=== PATIENT | female | born 1970 | race Caucasian/White ===

== ENCOUNTER 2016-10-11 00:13 | Inpatient (IN) | payer BC ==
[2016-10-11] VITALS (16 sets, daily range): BP systolic 100–155; BP diastolic 49–86; PULSE 82–118; RESP 12–22; TEMP 97.8–98.6; O2SAT 94–100
[~2016-10-11] VITALS: Ht 180.3 cm; Wt 112.3 kg
[~2016-10-11 00:13] MED LIST: CARA1SUS3 PO; COZA50TA PO; GABA300C5 PO; GABA600T PO; LANTUS2P SQ; METF1000 PO; PROT40TA PO
[2016-10-11] MEDS ORDERED: GLUC2.5T2 PO (00:40)
[2016-10-11] MEDS ORDERED: ESCI5TAB PO (00:40)
[2016-10-11] MEDS ORDERED: ONDANSETRON HCL 4 MG/2 ML VIAL IV ONE (00:45)
[2016-10-11] MEDS ORDERED: SODIUM CHLOR 0.9% 1000 ML INJ 1,000 ML IV ONE ×2 (00:45→02:15)
[2016-10-11 01:23] LABS: BLOOD, URINE NEG (NEG); COMMENT (UR) CULT NOT INDICATED; CULTURE IF INDICATED CULT NOT INDICATED; GLUCOSE,URINE 1000 mg/dL (NEG); KETONE, URINE 10 mg/dL (NEG); MUCUS URINE FEW /lpf (OCC); NITRITE,URINE NEG (NEG); PH, URINE 5.5 (5.0-8.5); SQUAMOUS EPITHELIAL CELL URINE 2 /hpf (0-5); URINE COLOR YELLOW (YELLW/STRAW)
[2016-10-11 01:29] LABS: AUTOMATED NEUTROPHIL # 9.7 TH/MM3 (1.8-7.7); BASOPHIL # 0.1 TH/MM3 (0-0.2); BASOPHIL % 0.7 % (0.0-2.0); EOSINOPHIL # 0.5 TH/MM3 (0-0.4); EOSINOPHIL % 4.1 % (0.0-4.0); LYMPHOCYTE # 2.4 TH/MM3 (1.0-4.8); MEAN CELL VOLUME 72.8 FL (80.0-100.0); MEAN CORPUSCULAR HEMOGLOBIN 22.7 PG (27.0-34.0); MEAN CORPUSCULAR HGB CONC 31.1 % (32.0-36.0); MONO % 5.2 % (0.0-8.0); PLATELET COUNT 272 TH/MM3 (150-450); RED BLOOD COUNT 2.24 MIL/MM3 (4.00-5.30); RED CELL DISTRIBUTION WIDTH 18.4 % (11.6-17.2); WHITE BLOOD COUNT 13.5 TH/MM3 (4.0-11.0)
[2016-10-11 01:32] LABS: HEMO FLAGS AUTO DIFF
[2016-10-11 01:33] LABS: HEMATOCRIT 16.3 % (35.0-46.0)
[2016-10-11 01:41] LABS: APTT (PATIENT) 25.4 SEC (24.3-30.1); INTERNATIONAL NORMALIZED RATIO 0.9 RATIO; PROTHROMBIN TIME - PATIENT 10.4 SEC (9.8-11.6)
[2016-10-11 02:08] LABS: ALT (GPT) 20 U/L (10-53); ANION GAP 10 MEQ/L (5-15); AST (GOT) 15 U/L (15-37); BICARBONATE 22.8 MEQ/L (21.0-32.0); BLOOD UREA NITROGEN 16 MG/DL (7-18); CHLORIDE 103 MEQ/L (98-107); GLOMERULAR FILTRATION RATE 70 ML/MIN (>89); MAGNESIUM 1.9 MG/DL (1.5-2.5); POTASSIUM 4.1 MEQ/L (3.5-5.1); SODIUM (NA) 136 MEQ/L (136-145)
[2016-10-11] MEDS ORDERED: MORPHINE SULFATE 4 MG/ML INJ IV PUSH ONE ×2 (02:15→03:15)
[2016-10-11] MEDS ORDERED: PANTOPRAZOLE INJ 80 MG in SODIUM CHLORIDE 0.9% INJ 35 ML IV ONE (02:15)
[2016-10-11] MEDS ORDERED: SODIUM CHLOR 0.9% 250 ML INJ 250 ML IV ONE ×2 (02:15)
[2016-10-11 02:18] LABS: ALKALINE PHOSPHATASE 80 U/L (45-117); TOTAL BILIRUBIN ADULT 0.2 MG/DL (0.2-1.0)
[2016-10-11 02:19] LABS: CREATINE KINASE 46 U/L (26-192)
[2016-10-11 02:23] LABS: STOMATOCYTES 1+ (NORMAL)
[2016-10-11 02:24] LABS: SCAN/DIFF AUTO DIFF CONFIRMED
[2016-10-11] MEDS: PANTOPRAZOLE INJ 80 MG in SODIUM CHLORIDE 0.9% INJ 100 ML IV SCH (02:41)
[2016-10-11] MEDS ORDERED: IOHEXOL 350 MG/ML 10 ML VIAL (for RAD DIAG) IV ONE (02:50)
--- NOTE | 2016-10-11 03:01 | PD ---
HPI Chief Complaint: Abdominal Pain Time Seen by Provider: 00:36 Travel History International Travel<30 days: No Contact w/Intl Traveler<30days: No Traveled to known affect area: No History of Present Illness HPI The patient is a 46 year old female who presents to the [facility] emergency department with a history of midepigastric abdominal pain that recurred 2 weeks ago after eating meat loaf. The patient reports that the pain waxes and wanes in severity. She reports it is worse with eating. She reports that it lasts for approximately 4 to 5 hours after eating and then she throws up undigested food. She reports that she has not been eating well because of it and has lost weight. She is unsure exactly how much. She reports that she' s also been getting pale, dizzy, and lightheaded with palpitations. She reports that with any exertion she feels her heart racing. The patient reports that she's been to her primary care physician, Dr. Morales on multiple occasions over the last 2 weeks. She reports that she was given a prescription for nausea medication today. She reports that she has not been able to fill the prescription today. She reports that he ordered blood work and a 24-hour Holter monitor, however she couldn't wait that she felt like she was benign. She reports that the pain she was experiencing is similar to what she had in May when she was started on Protonix. She reports that the Protonix had been continued since then and had been helping up until 2 weeks ago. The patient reports that she has been referred to a medicare sales executive for October 17. She denies ever undergoing endoscopy or colonoscopy. The patient reports that over the last week she's had frequent small tools that are black and tarry. The patient reports that when she started to have palpitations she felt that this could be cardiac in nature and for 2 days she took a baby aspirin daily. She reports that otherwise she has not taking any anti-inflammatory pain medications. The patient denies any recent fevers, cough, congestion, neck pain , urinary symptoms, or neurologic symptoms. LMP: 3-4 days ago her menstrual cycle completed. She reports that it was light. PFSH Past Medical History Narrative Medical The patient's past medical history is significant for diabetes mellitus and was diagnosed approximately 16 years ago, history of a hiatal hernia, history of hypertension. Cancer: No Cardiovascular Problems: No Diabetes: Yes Patient Takes Glucophage: Yes Diminished Hearing: No Endocrine: Yes Gastrointestinal Disorders: No Genitourinary: No Hepatitis: No Hiatal Hernia: Yes Hypertension: Yes Immune Disorder: No Musculoskeletal: No Neurologic: No Psychiatric: No Reproductive: No Respiratory: No Thyroid Disease: No ?: Not LMP: 10/09/16 Past Surgical History Narrative Surgical The patient's past surgical history is significant for liver biopsy, appendectomy, 2 abdominal hernia repairs. Abdominal Surgery: Yes (LIVER BIOPSY) Appendectomy: Yes Pacemaker: No Other Surgery: Yes (2 ABD hernia surgeries) Social History Alcohol Use: No Tobacco Use: Yes (5 CIGS PER DAY PER PT) Substance Use: No Allergies-Medications (Allergen,Severity, Reaction): Coded Allergies: No Known Allergies (Verified , 10/11/16) Reported Meds & Prescriptions Reported Meds & Active Scripts Active Protonix (Pantoprazole Sodium) 40 Mg Tab 40 Mg PO DAILY Reported Escitalopram (Escitalopram Oxalate) 5 Mg Tab 10 Mg PO DAILY Glucovance (Glyburide-Metformin) 2.5-500 Mg Tab 2 Tab PO BID Cozaar (Losartan Potassium) 50 Mg Tab 50 Mg PO DAILY Gabapentin 600 Mg Tab 900 Mg PO HS Lantus Inj (Insulin Glargine) 1,000 Unit/10 Ml Vial 58 Units SQ BID Review of Systems Except as stated in HPI: all other systems reviewed are Neg General / Constitutional: No: Fever Eyes: No: Visual changes HENT: No: Headaches Cardiovascular: Positive: Chest Pain or Discomfort, Palpitations, Tachycardia, Dyspnea on exertion Respiratory: No: Cough, Shortness of Breath Gastrointestinal: Positive: Nausea, Vomiting, Diarrhea, Abdominal Pain, Changes in Bowel Habits, Indigestion, Loss of Appetite, No: Hematemesis, Hematochezia Genitourinary: No: Dysuria Musculoskeletal: No: Pain Skin: No Rash Neurologic: No: Weakness Psychiatric: No: Depression Endocrine: No: Polydipsia Hematologic/Lymphatic: No: Easy Bruising Physical Exam Narrative General: The patient is a well-developed well-nourished female, extremely pale appearing on arrival, otherwise in no acute distress. Head and Neck exam: Head is normocephalic atraumatic. Eyes: EOMI, pupils are equal round and reactive to light. Nose: Midline septum with pink mucous membranes Mouth: Dentition unremarkable. Moist mucus membranes. Posterior oropharynx is not erythematous. No tonsillar hypertrophy. Uvula midline. Airway patent. Neck: No palpable lymphadenopathy. No nuchal rigidity. No thyromegaly. Cardiovascular: Sinus tachycardia in the low 100s without murmurs, gallops, or rubs. No pulse deficit to the extremities and simultaneous auscultation and palpation of her radial artery. Lungs: Clear to auscultation bilaterally. No wheezes, rhonchi, or rales. Abdomen: Soft, with midepigastric abdominal discomfort on palpation, no other tenderness on palpation of the other 4 quadrants of the abdomen No guarding, rebound, or rigidity. Normal bowel sounds are audible. The patient has a negative Landaverde' s sign. No tenderness on palpation of McBurney's point. Extremities: No clubbing, cyanosis, or edema. 2+ pulses in all 4 extremities. No calf tenderness on palpation. Back: No costovertebral angle tenderness to palpation. Neurologic Exam: Grossly nonfocal Skin Exam: No rash noted. Intact skin that is warm and dry. RECTAL EXAM: No masses or tenderness, stool is dark brown in color. Hemoprompt is Hemoccult positive. Data Data Last Documented VS Vital Signs Date Time Temp Pulse Resp B/P Pulse Ox O2 Delivery O2 Flow Rate FiO2 10/11/16 02:59 103 19 123/58 98 Room Air 10/11/16 00:15 98.0 Orders Electrocardiogram (10/11/16 00:36) Complete Blood Count With Diff (10/11/16 00:36) Comprehensive Metabolic Panel (10/11/16 00:36) Creatine Kinase (Cpk) (10/11/16 00:36) Ckmb (Isoenzyme) Profile (10/11/16 00:36) Troponin I (10/11/16 00:36) B-Type Natriuretic Peptide (10/11/16 00:36) Prothrombin Time / Inr (Pt) (10/11/16 00:36) Act Partial Throm Time (Ptt) (10/11/16 00:36) Lipase (10/11/16 00:36) Urinalysis - C+S If Indicated (10/11/16 00:36) Magnesium (Mg) (10/11/16 00:36) Thyroid Stimulating Hormone (10/11/16 00:36) Ct Abd/Pel W Iv Contrast(Rout) (10/11/16 00:36) Iv Access Insert/Monitor (10/11/16 00:36) Ecg Monitoring (10/11/16 00:36) Oximetry (10/11/16 00:36) Lactic Acid (10/11/16 00:36) Ct Pulmonary Angiogram (10/11/16 00:36) Sodium Chlor 0.9% 1000 Ml Inj (Ns 1000 M (10/11/16 00:45) Ondansetron Inj (Zofran Inj) (10/11/16 00:45) Type And Screen (10/11/16 02:05) Red Blood Cells (Rbc) (10/11/16 02:05) Sodium Chlor 0.9% 250 Ml Inj (Ns 250 Ml (10/11/16 02:15) Blood Product Administration .UPON TRANSFUSION (10/11/16 02:05) Sodium Chlor 0.9% 250 Ml Inj (Ns 250 Ml (10/11/16 02:15) Pantoprazole Inj (Protonix Inj) (10/11/16 02:15) Pantoprazole Inj (Protonix Inj) (10/11/16 02:15) Sodium Chlor 0.9% 1000 Ml Inj (Ns 1000 M (10/11/16 02:15) Morphine Inj (Morphine Inj) (10/11/16 02:15) Iohexol 350 Inj (Omnipaque 350 Inj) (10/11/16 02:50) Morphine Inj (Morphine Inj) (10/11/16 03:15) Admit Order (Ed Use Only) (10/11/16 03:16) Consult Gastroenterology (10/11/16 ) Labs Laboratory Tests Test 10/11/16 10/11/16 10/11/16 01:09 01:18 02:37 Urine Color YELLOW Urine Turbidity CLEAR Urine pH 5.5 Urine Specific [place] 1.030 Urine Protein TRACE mg/dL Urine Glucose (UA) 1000 mg/dL Urine Ketones 10 mg/dL Urine Occult Blood NEG Urine Nitrite NEG Urine Bilirubin NEG Urine Urobilinogen LESS THAN 2.0 MG/DL Urine Leukocyte Esterase NEG Urine RBC LESS THAN 1 /hpf Urine WBC 1 /hpf Urine Squamous Epithelial 2 /hpf Cells Urine Mucus FEW /lpf Microscopic Urinalysis Comment CULT NOT INDICATED White Blood Count 13.5 TH/MM3 Red Blood Count 2.24 MIL/MM3 Hemoglobin 5.1 GM/DL Hematocrit 16.3 % Mean Corpuscular Volume 72.8 FL Mean Corpuscular Hemoglobin 22.7 PG Mean Corpuscular Hemoglobin 31.1 % Concent Red Cell Distribution Width 18.4 % Platelet Count 272 TH/MM3 Mean Platelet Volume 8.6 FL Neutrophils (%) (Auto) 72.0 % Lymphocytes (%) (Auto) 18.0 % Monocytes (%) (Auto) 5.2 % Eosinophils (%) (Auto) 4.1 % Basophils (%) (Auto) 0.7 % Neutrophils # (Auto) 9.7 TH/MM3 Lymphocytes # (Auto) 2.4 TH/MM3 Monocytes # (Auto) 0.7 TH/MM3 Eosinophils # (Auto) 0.5 TH/MM3 Basophils # (Auto) 0.1 TH/MM3 CBC Comment AUTO DIFF Differential Comment AUTO DIFF CONFIRMED Polychromasia 3.0 % Stomatocytes 1+ Prothrombin Time 10.4 SEC Prothromb Time International 0.9 RATIO Ratio Activated Partial 25.4 SEC Thromboplast Time Sodium Level 136 MEQ/L Potassium Level 4.1 MEQ/L Chloride Level 103 MEQ/L Carbon Dioxide Level 22.8 MEQ/L Anion Gap 10 MEQ/L Blood Urea Nitrogen 16 MG/DL Creatinine 0.87 MG/DL Estimat Glomerular Filtration 70 ML/MIN Rate Random Glucose 326 MG/DL Lactic Acid Level 4.2 mmol/L Calcium Level 8.1 MG/DL Magnesium Level 1.9 MG/DL Total Bilirubin 0.2 MG/DL Aspartate Amino Transf 15 U/L (AST/SGOT) Alanine Aminotransferase 20 U/L (ALT/SGPT) Alkaline Phosphatase 80 U/L Total Creatine Kinase 46 U/L Troponin I LESS THAN 0.02 NG/ML B-Type Natriuretic Peptide 18 PG/ML Total Protein 6.3 GM/DL Albumin 2.7 GM/DL Lipase 185 U/L Thyroid Stimulating Hormone 1.690 uIU/ML 3rd Gen Blood Type A NEGATIVE Antibody Screen NEGATIVE Crossmatch Leukocyte-Reduced Red Blood Cells Blood Bank Comment MDM Medical Decision Making Medical Screen Exam Complete: Yes Emergency Medical Condition: Yes Medical Record Reviewed: Yes Interpretation(s) Last Impressions CT Angiography 10/11/16 0036 Signed Impressions: Service Date/Time: Tuesday, October 11, 2016 02:39 - CONCLUSION: 1. No evidence of pulmonary embolism. 2. There is a 5 mm and 6 mm pulmonary nodule the right upper lung. This finding is nonspecific. Recommend followup noncontrast CT thorax in 6 months to check stability. 3. No acute intrathoracic disease. Yadiel Hill MD Abdomen/Pelvis CT 10/11/16 0036 Signed Impressions: Service Date/Time: Tuesday, October 11, 2016 02:39 - CONCLUSION: 1. 3 cm bilateral ovarian cysts. 2. Otherwise, unremarkable exam for patient's age. Yadiel Hill MD Differential Diagnosis Peptic ulcer disease, versus hemorrhagic esophagitis, versus diverticulosis, versus AVM malformation, versus gastric tumor, versus pulmonary embolism, versus symptomatic anemia Narrative Course During the course of the patients emergency department visit, the patients history, examination, and differential diagnosis were reviewed with the patient. The patient had IV access obtained and blood work sent for analysis. The patient was placed on a kitchen help handyman with oximetry and blood pressure monitoring. An EKG was done on arrival. The patient's EKG shows a sinus tachycardia rate of 104, no acute ST segment elevation or depression. The patient was initially provided normal saline 1 L IV fluid bolus, Zofran 4 mg IV. The patient was started on Protonix 80 mg IV followed by Protonix drip. The patient was given morphine for pain. The patients laboratory studies were reviewed and remarkable for a white count of 13.5, hemoglobin 5.1, platelets 272, neutrophils 72.0. The patient was typed and crossmatched for 4 units of blood. The patient will be given 2 units packed red blood cells immediately. CMP is remarkable for a glucose of 326, calcium 8.1, lactic acid 4.2. A second liter of normal saline IV fluids were started, CPK 46, troponin I less than 0.02, BNP 18, TSH 1.69, lipase 185. PT PTT within normal limits. Urinalysis shows 1000 glucose, 10 ketones, otherwise unremarkable. Radiology studies were reviewed and remarkable for A CT scan of the abdomen and pelvis that shows 3 cm bilateral ovarian cysts, otherwise unremarkable. CTA to rule out pulmonary embolism shows no evidence of pulmonary embolism. There is a 5 mm and 6 mm pulmonary nodule in the right lung finding is nonspecific recommend follow-up noncontrast CT in 6 months to check stability, no other acute abnormality. The patients results were discussed with the patient, including the plan of care. I explained that further testing and/ or monitoring is indicated based on the patients history, examination, and/ or laboratory findings. Therefore, I recommended admission for additional evaluation. The patient expressed understanding and was agreeable with this plan. The patient was admitted to the hospital in guarded condition and sent to a bed under the care of the [facility]. Physician Communication Physician Communication The patient's case was discussed with Aman Metcalf who did agree to admit the patient for further evaluation and treatment at this time. Diagnosis Primary Impression: Abdominal pain Qualified Code: R10.13 - Epigastric pain Additional Impression: GI bleed Qualified Code: K92.2 - Gastrointestinal hemorrhage, unspecified gastrointestinal hemorrhage type Admitting Information Admitting Physician Requests: it Allyson Robertson MD Oct 11, 2016 03:01
--- NOTE | 2016-10-11 03:04 | RADRPT ---
EXAM DATE/TIME: 10/11/2016 02:39 [facility] COMPARISON: No previous studies available for comparison. INDICATIONS : Short of breath. IV CONTRAST: 100 cc Omnipaque 350 (iohexol) IV ; Cumulative dose for multiple exams. RADIATION DOSE: 12.55 CTDIvol (mGy) MEDICAL HISTORY : Hypertension. Hernia, hiatal. Diabetes mellitus type 2. SURGICAL HISTORY : Appendectomy. Hernia repair. ENCOUNTER: Initial ACUITY: 2 weeks PAIN SCALE: 0/10 LOCATION: chest TECHNIQUE: Volumetric scanning of the chest was performed using a pulmonary embolism protocol MIP images were re constructed. Using automated exposure control and adjustment of the mA and/or kV according to patien t size, radiation dose was kept as low as reasonably achievable to obtain optimal diagnostic quality images. FINDINGS: PULMONARY ARTERIES: No filling defects are seen in the pulmonary arteries through the segmental level. LUNGS: There is no consolidation or pneumothorax . No focal or acute pulmonary infiltrates. There is a 5 mm pulmonary nodule in the 6 mm pulmonary nodule in the right upper lung. PLEURAE: There is no pleural thickening or pleural effusion. MEDIASTINUM: There is good visualization of the great vessels of the middle mediastinum. No evidence of mediastin al or hilar adenopathy/mass. MUSCULOSKELETAL: Within normal limits for patient age. Mild degenerative changes. MISCELLANEOUS: The visualized upper abdominal organs demonstrate no acute abnormality. CONCLUSION: 1. No evidence of pulmonary embolism. 2. There is a 5 mm and 6 mm pulmonary nodule the right upper lung. This finding is nonspecific. Recom mend followup noncontrast CT thorax in 6 months to check stability. 3. No acute intrathoracic disease. Yadiel Hill MD on October 11, 2016 at 2:58 Board Certified Radiologist. This report was verified electronically.
--- NOTE | 2016-10-11 03:08 | RADRPT ---
EXAM DATE/TIME: 10/11/2016 02:39 [facility] COMPARISON: No previous studies available for comparison. INDICATIONS : Diffuse abdominal pain with nausea, vomiting and diarrhea. IV CONTRAST: 100 cc Omnipaque 350 (iohexol) IV ; Cumulative dose for multiple exams. ORAL CONTRAST: No oral contrast ingested. RADIATION DOSE: 16.86 CTDIvol (mGy) MEDICAL HISTORY : Hernia, hiatal. Hypertension. Diabetes mellitus type 2. SURGICAL HISTORY : Appendectomy. Hernia repair. ENCOUNTER: Initial ACUITY: 2 weeks PAIN SCALE: 6/10 LOCATION: Bilateral abdomen TECHNIQUE: Volumetric scanning of the abdomen and pelvis was performed. Using automated exposure control and ad justment of the mA and/or kV according to patient size, radiation dose was kept as low as reasonably achievable to obtain optimal diagnostic quality images. FINDINGS: LOWER LUNGS: The visualized lower lungs are clear. LIVER: Homogeneous density without lesion. There is no dilation of the biliary tree. No calcified gallston es. SPLEEN: Normal size without lesion. PANCREAS: Within normal limits. KIDNEYS: Normal in size and shape. There is no mass, stone or hydronephrosis. ADRENAL GLANDS: Within normal limits. VASCULAR: There is no aortic aneurysm. BOWEL/MESENTERY: The stomach, small bowel, and colon demonstrate no acute abnormality. There is no free intraperitone al air or fluid. No inflammatory changes. ABDOMINAL WALL: Within normal limits. RETROPERITONEUM: There is no lymphadenopathy. BLADDER: No wall thickening or mass. REPRODUCTIVE: The uterus is within normal limits for size. There are bilateral ovarian cysts measuring approximatel y 3 cm in diameter. No free fluid in the cul-de-sac. INGUINAL: There is no hernia. A few nonspecific lymph nodes are seen in both inguinal areas. MUSCULOSKELETAL: Within normal limits for patient age. Primary bony degenerative changes. CONCLUSION: 1. 3 cm bilateral ovarian cysts. 2. Otherwise, unremarkable exam for patient's age. Yadiel Hill MD on October 11, 2016 at 3:03 Board Certified Radiologist. This report was verified electronically.
[2016-10-11] MEDS: SODIUM CHLOR 0.9% 1000 ML INJ 1,000 ML IV SCH ×3 (03:25→23:16)
[2016-10-11] MEDS ORDERED: ONDANSETRON HCL 4 MG/2 ML VIAL IVP PRN (03:30)
[2016-10-11] MEDS ORDERED: NALOXONE HCL 0.4 MG/ML AMP IV PRN (03:30)
[2016-10-11] MEDS ORDERED: ACETAMINOPHEN 325 MG TAB PO PRN (03:30)
[2016-10-11] MEDS ORDERED: SODIUM CHLORIDE 0.9% FLUSH 10 ML FLUSH IV FLUSH PRN (03:30)
--- NOTE | 2016-10-11 07:20 | PD.CONS ---
HPI History of Present Illness This is a 46 year old female who presented to the ER for evaluation of abdominal pain with associated black and tarry stools x 2 weeks. She reports that she has been having post prandial epigastric pain, described as an intermittent burning, dull aching at time, pain with no radiation. This is aggravated by any po intake. She has associated nausea, vomiting, consisting of undigested food or bilious material. She also has associated bloating. She was seen in the ER several weeks ago and told that she may have an ulcer and was started on Pantoprazole 40mg po daily. She has continued to have pain and also reports that she started having black tarry stools about 2 weeks ago. She reports that she has had severe weakness, dizziness, lightheadedness, and a "racing heart" for 2 weeks. This seems to be aggravated by activity. In the ER , she was found to have severe anemia with an HH 5.1/16.3. She denies any hx of PUD. She has never had an EGD/Colonoscopy. She does not take NSAIDs. She does not drink ETOH. (Rebecca Rutherford) PFSH Past Medical History Hypertension Hyperlipidemia DM Allergic rhinitis DDD cervical spine Hx Bursitis right shoulder Hiatal hernia Past Surgical History Appendectomy Liver biopsy Abdominal hernia repairs x 2 (Rebecca Rutherford) Coded Allergies: No Known Allergies (Verified , 10/11/16) Medications Allergies Coded Allergies Type Severity Reaction Last Updated Verified No Known Allergies 10/11/16 Yes Active Scripts Medications Dose Route/Sig Days Date Category Escitalopram (Escitalopram Oxalate) 5 Mg Tab 10 Mg PO DAILY 10/11/16 Reported Glucovance (Glyburide-Metformin) 2.5-500 Mg Tab 2 Tab PO BID 10/11/16 Reported Protonix (Pantoprazole Sodium) 40 Mg Tab 40 Mg PO DAILY 06/08/16 Rx Cozaar (Losartan Potassium) 50 Mg Tab 50 Mg PO DAILY 06/08/16 Reported Gabapentin 600 Mg Tab 900 Mg PO HS 06/08/16 Reported Lantus Inj (Insulin Glargine) 1,000 Unit/10 Ml Vial 58 Units SQ BID 06/08/16 Reported Family History Father with hx of CVA Mother with hx of uterine cancer Social History Tobacco- 5 cigarettes per day. (Rebecca Rutherford) Review of Systems Constitutional: COMPLAINS OF: Fatigue, Dizziness, DENIES: Fever, Weight loss, Chills, Change in appetite Respiratory: COMPLAINS OF: Shortness of breath, DENIES: Cough Cardiovascular: COMPLAINS OF: Palpitations (racing heart) Gastrointestinal: COMPLAINS OF: Abdominal pain, Black stools, Nausea, Vomiting , Swelling of Abdomen, Heartburn, DENIES: Bloody stools, Constipation, Diarrhea , Hematemesis Musculoskeletal: DENIES: Back pain Integumentary: DENIES: Rash Hematologic/lymphatic: DENIES: Bruising Neurologic: DENIES: Headache Psychiatric: DENIES: Confusion (RutherfordRebecca) GI Exam Vitals I&O Vital Signs Date Time Temp Pulse Resp B/P Pulse Ox O2 Delivery O2 Flow Rate FiO2 10/11/16 06:50 98.4 88 12 115/86 100 10/11/16 06:00 98.4 89 12 114/59 100 10/11/16 05:06 98.3 90 18 106/49 96 Room Air 10/11/16 04:45 98.2 90 16 100/50 97 Room Air 10/11/16 04:31 92 17 119/56 96 Room Air 10/11/16 04:21 98.3 94 18 124/58 98 Room Air 10/11/16 04:10 98.3 95 14 116/59 97 Room Air 10/11/16 02:59 103 19 123/58 98 Room Air 10/11/16 01:36 106 22 135/68 100 Room Air 10/11/16 00:50 104 20 139/63 98 Room Air 10/11/16 00:15 98.0 118 16 133/62 100 Room Air I/O 10/10/16 10/10/16 10/10/16 10/11/16 10/11/16 10/11/16 07:00 15:00 23:00 07:00 15:00 23:00 Intake Total 589 ml Balance 589 ml Intake IV Total 339 ml Packed Cells 250 ml # Voids [address] Angiography 10/11/16 0036 Signed Impressions: Service Date/Time: Tuesday, October 11, 2016 02:39 - CONCLUSION: 1. No evidence of pulmonary embolism. 2. There is a 5 mm and 6 mm pulmonary nodule the right upper lung. This finding is nonspecific. Recommend followup noncontrast CT thorax in 6 months to check stability. 3. No acute intrathoracic disease. Yadiel Hill MD Abdomen/Pelvis CT 10/11/16 0036 Signed Impressions: Service Date/Time: Tuesday, October 11, 2016 02:39 - CONCLUSION: 1. 3 cm bilateral ovarian cysts. 2. Otherwise, unremarkable exam for patient's age. Yadiel Hill MD Laboratory Test 10/11/16 10/11/16 10/11/16 10/11/16 01:09 01:18 02:37 05:36 Urine Color YELLOW Urine Turbidity CLEAR Urine pH 5.5 Urine Specific [place] 1.030 Urine Protein TRACE mg/dL Urine Glucose (UA) 1000 mg/dL Urine Ketones 10 mg/dL Urine Occult Blood NEG Urine Nitrite NEG Urine Bilirubin NEG Urine Urobilinogen LESS THAN 2.0 MG/DL Urine Leukocyte Esterase NEG Urine RBC LESS THAN 1 /hpf Urine WBC 1 /hpf Urine Squamous Epithelial 2 /hpf Cells Urine Mucus FEW /lpf Microscopic Urinalysis Comment CULT NOT INDICATED White Blood Count 13.5 TH/MM3 Red Blood Count 2.24 MIL/MM3 Hemoglobin 5.1 GM/DL Hematocrit 16.3 % Mean Corpuscular Volume 72.8 FL Mean Corpuscular Hemoglobin 22.7 PG Mean Corpuscular Hemoglobin 31.1 % Concent Red Cell Distribution Width 18.4 % Platelet Count 272 TH/MM3 Mean Platelet Volume 8.6 FL Neutrophils (%) (Auto) 72.0 % Lymphocytes (%) (Auto) 18.0 % Monocytes (%) (Auto) 5.2 % Eosinophils (%) (Auto) 4.1 % Basophils (%) (Auto) 0.7 % Neutrophils # (Auto) 9.7 TH/MM3 Lymphocytes # (Auto) 2.4 TH/MM3 Monocytes # (Auto) 0.7 TH/MM3 Eosinophils # (Auto) 0.5 TH/MM3 Basophils # (Auto) 0.1 TH/MM3 CBC Comment AUTO DIFF Differential Comment AUTO DIFF CONFIRMED Polychromasia 3.0 % Stomatocytes 1+ Prothrombin Time 10.4 SEC Prothromb Time International 0.9 RATIO Ratio Activated Partial 25.4 SEC Thromboplast Time Sodium Level 136 MEQ/L Potassium Level 4.1 MEQ/L Chloride Level 103 MEQ/L Carbon Dioxide Level 22.8 MEQ/L Anion Gap 10 MEQ/L Blood Urea Nitrogen 16 MG/DL Creatinine 0.87 MG/DL Estimat Glomerular Filtration 70 ML/MIN Rate Random Glucose 326 MG/DL Lactic Acid Level 4.2 mmol/L 1.4 mmol/L Calcium Level 8.1 MG/DL Magnesium Level 1.9 MG/DL Total Bilirubin 0.2 MG/DL Aspartate Amino Transf 15 U/L (AST/SGOT) Alanine Aminotransferase 20 U/L (ALT/SGPT) Alkaline Phosphatase 80 U/L Total Creatine Kinase 46 U/L Troponin I LESS THAN 0.02 NG/ML B-Type Natriuretic Peptide 18 PG/ML Total Protein 6.3 GM/DL Albumin 2.7 GM/DL Lipase 185 U/L Thyroid Stimulating Hormone 1.690 uIU/ML 3rd Gen Blood Type A NEGATIVE Antibody Screen NEGATIVE Crossmatch Leukocyte-Reduced Red Blood Cells Blood Bank Comment Physical Examination HEENT: Normocephalic; atraumatic; no jaundice CHEST: CTA CARDIAC: RRR ABDOMEN: Soft, nondistended, very mild epigastric tenderness; no hepatosplenomegaly; bowel sounds are present in all four quadrants. EXTREMITIES: No clubbing, cyanosis, or edema. SKIN: Normal; no rash; no jaundice. ADDRESSER: No focal deficits; alert and oriented times three. (Rebecca Rutherford) Assessment and Plan Plan ASSESSMENT: - Severe anemia. H/H 5.1/16.3 on admission. Reports epigastric pain, nausea, vomiting, bloating, gerd, generalized weakness, dizziness, sob on exertion, "racing heart" x 2 weeks. No hx of PUD. No NSAID or ETOH use. Never had egd/colonoscopy. D/W patient further evaluation with EGD, procedure, risks, benefits, and she would like to proceed. 2 units of PRBC- last unit transfusing. Protonix Gtt. - Melena. Protonix Gtt. EGD today. - Abdominal pain, N/V. Reports burning/dull aching pain in epigastric area, aggravated by food with melena x 2 weeks. PPI. EGD today. - GERD. Recently started on Protonix. - HTN, Hyperlipidemia, DM. Per primary. PLAN: - Plan for egd today - Obtain consents - NPO - Protonix Gtt - Monitor HH - Transfuse as necessary - Supportive care - Further recommendations to follow based on results of above (Rebecca Rutherford) Physician Comments Patient seen and examined Agree with above Continue current supportive care Monitor labs Upper endoscopy today (Sushil Ferrera MD) Rebecca Rutherford Oct 11, 2016 07:20 Sushil Ferrera MD Oct 11, 2016 15:54
[2016-10-11] MEDS: SODIUM CHLORIDE 0.9% FLUSH 10 ML FLUSH IV FLUSH SCH ×2 (07:39→20:36)
--- NOTE | 2016-10-11 08:36 | EKG ---
Date Performed: 10/11/2016 Time Performed: 01:12:44 PTAGE: 46 years EKG: SINUS TACHYCARDIA ABNORMAL ECG PREVIOUS TRACING : 06/08/2016 05.19 No significant change from previous tracing noted. DOCTOR: Antolin Saxena Interpretating Date/Time 10/11/2016 08:36:06
[2016-10-11] MEDS ORDERED: PROPOFOL 200 MG/20 ML AMP IV ONE ×2 (11:10→15:43)
--- NOTE | 2016-10-11 12:54 | MH ---
cc: AMAURY UNGER MD DATE OF ADMISSION: 10/11/2016 DATE OF 1970 CHIEF COMPLAINT Abdominal pain, lightheadedness and shortness of breath x 2 weeks. TRAVEL IN THE LAST 30 DAYS None. HISTORY OF PRESENT ILLNESS This is a pleasant 46-year-old female who came to the emergency room with mid-epigastric abdominal pain. She states that it has waxed and waned for the past two weeks and was worse after eating. The patient does note symptoms of dizziness, shortness of breath, tachycardia, blurry vision in the a.m. which lasts for 2-3 hours before her eyes would clear. She had seen her PCP and was beginning some outpatient workups such as a 24-hour Holter monitor and medication but her symptoms got no better. The patient was noted to be here in the hospital back in May with the same type of epigastric pain and was noted to have an ulcer. She had a follow-up appointment with GI was made for October 17. The patient had never had any procedures for any workup during her hospital stay in May. The patient did have lab work drawn this week but reports had not come back yet. When she was evaluated in the emergency room her hemoglobin was 5.1. The patient has been transfused with 2 units of blood. She is feeling much better, states that she still has some epigastric pain but it is much improved. The patient does have two more units of blood on hold. GI consult has been initiated and the patient is currently n.p.o. to have an EGD today. According to the record the patient had taken some baby aspirin thinking that her symptoms at home were cardiac in nature. She was having nausea and vomiting especially after eating. The patient is a type 2 diabetic. MEDICAL HISTORY 1. Diabetes type 2 for the last 16 years, insulin dependent. The patient takes Glucophage. 2. Hypertension. 3. Hiatal hernia. 4. Gastroesophageal reflux disease. 5. Recent diagnosis of ulcer back in May of 2016. PAST SURGICAL HISTORY 1. Liver biopsy. 2. Two abdominal hernia surgeries. 3. Appendectomy. ALLERGIES TO MEDICATIONS None known. ACTIVE MEDICINES NOW Protonix. REPORTED MEDICATIONS 1. Cozaar. 2. Gabapentin. 3. Lantus insulin. 4. Glyburide. 5. Escitalopram. SOCIAL HISTORY The patient is , currently lives in the home with her . She does admit to some tobacco abuse but only smoking three to five cigarettes a day. No alcohol use. No illicit drug use. 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 REVIEW OF SYSTEMS A 12-point review was done, positives noted in HPI which include dizziness, shortness of breath, tachycardia, blurred vision, epigastric pain, decreased appetite, nausea and vomiting. Other systems are negative or unremarkable. The patient does note a dark stool yesterday that was abnormal. PHYSICAL EXAMINATION VITAL SIGNS: Temperature is 98, pulse 86, respirations 16, blood pressure 119/61, O2 sat 94, currently on room air. GENERAL: Mildly obese white female looks to be her stated age resting in the bed. She is alert, oriented and a fairly good historian. HEENT: Atraumatic, normocephalic. PERRLA. Mucous membranes are pale but moist. No scleral icterus. NECK: Supple. Trachea is midline. CARDIOVASCULAR: S1, S2. No murmurs, rubs or gallops. She has trace of edema. Pulses are intact. RESPIRATORY: Essentially clear anteriorly and posteriorly with no wheezes, rales or rhonchi. Currently no shortness of breath noted. ABDOMEN: Round, soft, some tenderness noted in the epigastric area but much improved over the last 4-5 hours. Active bowel sounds in all four quads. MUSCULOSKELETAL: Moves her extremities with purpose. She has equal hand line up worker. NEUROLOGIC: She is alert, oriented. Speech is clear. Good historian. Speech is clear. PSYCHIATRIC: Appropriate mood and affect. DIAGNOSTIC DATA WBC count 13.5, RBC 2.24, hemoglobin 5.1, hematocrit 16.3. She has a platelet count of 272, neutrophil auto percentage count 72, lymphocyte 18, monocyte 5.2, eosinophil 4.1. Chemistry: Sodium 136, potassium 4.1, chloride 103, carbon dioxide 22.8, anion gap 10, BUN 16, creatinine 0.87, GFR 70, glucose on admission 326, lactic acid initially 4.2, next checked 4 hours later was 1.4. Calcium 8.1, magnesium 1.9, bilirubin 0.2, AST 15, ALT 20, alkaline phosphatase 80, total creatinine kinase of 46. Troponin less than 0.02, BNP 18, total protein 6.3, albumin 2.7, lipase 185, TSH 1.690. Urine is yellow, clear, pH 5.5, specific gravity 1.030, trace protein, glucose was greater than 1000 ketones 10, negative for occult blood, nitrites, bilirubin and leukocyte esterase. Culture is not indicated. PT/INR 0.9. MRSA is not detected on the nasal smear. IMAGING STUDIES Abdominal/pelvic CT to show a 1.3 cm bilateral ovarian cyst, otherwise unremarkable exam. CT angiography shows no evidence of PE. There is a 5-mm and 6-mm pulmonary nodule on the right upper lung, nonspecific. Recommend followup in 6 months to check stability. No acute intrathoracic disease. ASSESSMENT AND PLAN 1. Epigastric pain. 2. Gastrointestinal hemorrhage. 3. Lactic acid sepsis. 4. Gastroesophageal reflux disease. 5. Probable esophagitis. 6. Tobacco abuse. 7. Leukocytosis, unknown reason. 8. Diabetes mellitus type 2, uncontrolled. Our plan is to admit inpatient status, monitor her vital signs q. 4 hours, currently n.p.o.. GI consult for their expert opinion. The plan is for the patient to have EGD today, GI workup in progress, hydration with IV fluids. She is receiving a continuous drip of propranolol. Her labs have been initiated and monitored and we will do followups in the morning. She has ECG monitoring, IV access and is being maintained in the intensive care setting until stabilized . Medications as warranted, will be reconciled. Currently the patient's meds are her IV fluids and IV Protonix. Radiology studies were fairly unremarkable for this acute event but she will need some followup with the CT scan in 6 months to check her pulmonary nodules. Also, if any symptoms arise, she will need to follow up on bilateral ovarian cysts with her [facility] doctor. In the emergency room treatment was initiated with IV fluid boluses, Zofran and the Protonix drip. She was placed on cardiac monitoring, initially had a rate of 104, sinus tachycardia, now stabilized with a heart rate of 86. The patient is full code, full aggressive care and we will follow. Dictated by: SELINA Triplett MD WESTLEY Lynne/PAMELLA /10:47 AM /12:54 PM
--- NOTE | 2016-10-11 15:58 | PD.PROCEDR ---
GI Procedure REFERRING PHYSICIAN Dr. parekh PROCEDURE PERFORMED EGD with biopsy INDICATION FOR PROCEDURE Abdominal pain nausea vomiting melena and anemia PROCEDURE: The procedure, risks and benefits were discussed with Ms. Nicholson and informed consent was obtained. Anesthesia sedated her with Diprivan. She was placed in the left lateral decubitus position. EGD: The Pentax videoscope was introduced through the oropharynx and advanced to the second portion of the duodenum under direct visualization. Retroflexion was performed in the stomach. FINDINGS: Esophagus there is mild distal esophageal erythema suggestive of reflux esophagitis The stomach there was a small hiatal hernia there was a large amount of food residue in the stomach obscuring vision of the gastric body and fundus and to a lesser extent the antrum no blood or bleeding was seen in the stomach the antrum was somewhat erythemic The duodenum the duodenal bulb was deformed with significant edema and erythema with ulceration this is probably causing a partial gastric Obstruction which explains the food residue in the stomach and the second portion of the duodenum was normal biopsies from the duodenal bulb were taken ESTIMATED BLOOD LOSS: None SPECIMENS REMOVED: Duodenal bulb COMPLICATIONS: None IMPRESSION: Reflux esophagitis Hiatal hernia Food residue obscuring complete evaluation Gastritis Duodenal ulcer and duodenitis Partial gastric outlet obstruction PLAN: Await biopsy Continue PPI Avoid NSAIDs and aspirin For now she'll be on a clear liquid diet but on discharge she needs to be on a low residue diet Follow up with GI in 3-4 weeks EGD in 2 months Sushil Ferrera MD Oct 11, 2016 15:58
[2016-10-11] MEDS ORDERED: GLUCAGON 1 MG/ML VIAL OTHER PRN (16:45)
[2016-10-11] MEDS ORDERED: DEXTROSE 50% IN WATER 50 ML VIAL(D50) IV PUSH PRN (16:45)
--- NOTE | 2016-10-11 16:45 | HHI.PR ---
Objective Objective Results - Vital Signs Date Time Temp Pulse Resp B/P Pulse Ox O2 Delivery O2 Flow Rate FiO2 10/11/16 15:21 98.3 82 14 130/65 96 10/11/16 11:21 98.4 90 19 155/72 97 10/11/16 07:21 98.0 86 16 119/61 94 10/11/16 07:00 95 Room Air 10/11/16 06:50 98.4 88 12 115/86 100 10/11/16 06:00 98.4 89 12 114/59 100 10/11/16 05:06 98.3 90 18 106/49 96 Room Air 10/11/16 04:45 98.2 90 16 100/50 97 Room Air 10/11/16 04:31 92 17 119/56 96 Room Air 10/11/16 04:21 98.3 94 18 124/58 98 Room Air 10/11/16 04:10 98.3 95 14 116/59 97 Room Air 10/11/16 02:59 103 19 123/58 98 Room Air 10/11/16 01:36 106 22 135/68 100 Room Air 10/11/16 00:50 104 20 139/63 98 Room Air 10/11/16 00:15 98.0 118 16 133/62 100 Room Air I/O 10/10/16 10/10/16 10/10/16 10/11/16 10/11/16 10/11/16 07:00 15:00 23:00 07:00 15:00 23:00 Intake Total 589 ml Balance 589 ml Intake IV Total 339 ml Packed Cells 250 ml # Voids 1 1 Result Diagram: 10/11/168 10/11/16 0118 Other Results Laboratory Tests Test 10/11/16 10/11/16 10/11/16 10/11/16 01:09 01:18 02:37 05:36 Urine Color YELLOW Urine Turbidity CLEAR Urine pH 5.5 Urine Specific [place] 1.030 Urine Protein TRACE Urine Glucose (UA) 1000 Urine Ketones 10 Urine Occult Blood NEG Urine Nitrite NEG Urine Bilirubin NEG Urine Urobilinogen LESS THAN 2.0 Urine Leukocyte Esterase NEG Urine RBC LESS THAN 1 Urine WBC 1 Urine Squamous Epithelial 2 Cells Urine Mucus FEW Microscopic Urinalysis Comment CULT NOT INDICATED White Blood Count 13.5 Red Blood Count 2.24 Hemoglobin 5.1 Hematocrit 16.3 Mean Corpuscular Volume 72.8 Mean Corpuscular Hemoglobin 22.7 Mean Corpuscular Hemoglobin 31.1 Concent Red Cell Distribution Width 18.4 Platelet Count 272 Mean Platelet Volume 8.6 Neutrophils (%) (Auto) 72.0 Lymphocytes (%) (Auto) 18.0 Monocytes (%) (Auto) 5.2 Eosinophils (%) (Auto) 4.1 Basophils (%) (Auto) 0.7 Neutrophils # (Auto) 9.7 Lymphocytes # (Auto) 2.4 Monocytes # (Auto) 0.7 Eosinophils # (Auto) 0.5 Basophils # (Auto) 0.1 CBC Comment AUTO DIFF Differential Comment AUTO DIFF CONFIRMED Polychromasia 3.0 Stomatocytes 1+ Prothrombin Time 10.4 Prothromb Time International 0.9 Ratio Activated Partial 25.4 Thromboplast Time Sodium Level 136 Potassium Level 4.1 Chloride Level 103 Carbon Dioxide Level 22.8 Anion Gap 10 Blood Urea Nitrogen 16 Creatinine 0.87 Estimat Glomerular Filtration 70 Rate Random Glucose 326 Lactic Acid Level 4.2 1.4 Calcium Level 8.1 Magnesium Level 1.9 Total Bilirubin 0.2 Aspartate Amino Transf 15 (AST/SGOT) Alanine Aminotransferase 20 (ALT/SGPT) Alkaline Phosphatase 80 Total Creatine Kinase 46 Troponin I LESS THAN 0.02 B-Type Natriuretic Peptide 18 Total Protein 6.3 Albumin 2.7 Lipase 185 Thyroid Stimulating Hormone 1.690 3rd Gen Blood Type A NEGATIVE Antibody Screen NEGATIVE Crossmatch Leukocyte-Reduced Red Blood Cells Blood Bank Comment Test 10/11/16 05:50 Nasal Screen MRSA (PCR) MRSA NOT DETECTED Physical Exam Physical Exam PT is seen & Examined d/w PT d/w Josefina d/w RN receiving 4th Unit PRBC IVF IV PPI for EGD see H&P will f/u Chris Avina MD Oct 11, 2016 16:45
[2016-10-11] MEDS: INSULIN ASPART SUPPLEMENTAL SCALE SQ SCH (20:48)
[2016-10-11] MEDS ORDERED: GABAPENTIN 300 MG CAP PO SCH (21:00)
[2016-10-11] MEDS ORDERED: LOSARTAN 50 MG TAB PO ONE (21:00)
[2016-10-11 23:11] LABS: HEMATOCRIT 23.7 % (35.0-46.0)
[2016-10-11 23:13] LABS: REVIEW FLAG FINAL
[2016-10-12 03:21] VITALS: BP 130/81; PULSE 78; RESP 16; TEMP 98.2; O2SAT 100
[2016-10-12 04:28] LABS: AUTOMATED NEUTROPHIL # 7.6 TH/MM3 (1.8-7.7); BASOPHIL # 0.1 TH/MM3 (0-0.2); EOSINOPHIL # 0.7 TH/MM3 (0-0.4); EOSINOPHIL % 6.1 % (0.0-4.0); HEMATOCRIT 23.1 % (35.0-46.0); LYMPH % 24.4 % (9.0-44.0); LYMPHOCYTE # 2.9 TH/MM3 (1.0-4.8); MEAN CELL VOLUME 75.3 FL (80.0-100.0); MEAN CORPUSCULAR HEMOGLOBIN 23.6 PG (27.0-34.0); MEAN CORPUSCULAR HGB CONC 31.4 % (32.0-36.0); MONO % 4.4 % (0.0-8.0); NEUT % 64.1 % (16.0-70.0); PLATELET COUNT 201 TH/MM3 (150-450); RED BLOOD COUNT 3.07 MIL/MM3 (4.00-5.30); RED CELL DISTRIBUTION WIDTH 19.6 % (11.6-17.2); WHITE BLOOD COUNT 11.9 TH/MM3 (4.0-11.0)
[2016-10-12 04:40] LABS: HEMO FLAGS AUTO DIFF
[2016-10-12 05:03] LABS: BICARBONATE 24.7 MEQ/L (21.0-32.0); POTASSIUM 3.5 MEQ/L (3.5-5.1)
[2016-10-12 05:14] LABS: CALCIUM-PROTEIN CORRECTED 8.1 MG/DL (8.5-10.1)
[2016-10-12 05:30] LABS: OVALOCYTES 1+ (NORMAL); SCAN/DIFF AUTO DIFF CONFIRMED
[2016-10-12] MEDS: INSULIN ASPART SUPPLEMENTAL SCALE SQ SCH ×3 (07:00→17:34)
[2016-10-12 08:00] VITALS: BP 138/67; PULSE 80; RESP 24; TEMP 97.9; O2SAT 100
[2016-10-12] MEDS ORDERED: LOSARTAN 50 MG TAB PO SCH (09:00)
[2016-10-12] MEDS ORDERED: ESCITALOPRAM OXALATE 10 MG TAB PO SCH (09:00)
--- NOTE | 2016-10-12 09:09 | HHI.PR ---
Subjective Remarks resting in bed awake alert hungry (Josefina Masters) Objective Objective Results - Vital Signs Date Time Temp Pulse Resp B/P Pulse Ox O2 Delivery O2 Flow Rate FiO2 10/12/16 03:21 98.2 78 16 130/81 100 10/11/16 23:21 97.8 86 19 128/76 99 10/11/16 19:21 98.6 88 21 152/86 100 10/11/16 19:00 100 Room Air 10/11/16 15:21 98.3 82 14 130/65 96 10/11/16 11:21 98.4 90 19 155/72 97 I/O 10/11/16 10/11/16 10/11/16 10/12/16 10/12/16 10/12/16 07:00 15:00 23:00 07:00 15:00 23:00 Intake Total 589 ml 1045 ml 552 ml Balance 589 ml 1045 ml 552 ml Intake Oral 250 ml IV Total 339 ml 795 ml 552 ml Packed Cells 250 ml # Voids 1 1 3 2 (Josefina Masters) Result Diagram: 10/12/16 0350 10/12/16 0350 ROS General: Fatigue, Weakness (improving), Other (10 point ROS done. Hungry, generalized fatigue, better today. other systems unremarkable) GI: Abdominal Pain (improved) (Josefina Masters) Physical Exam Physical Exam PHYSICAL EXAMINATION GENERAL: This is a well-developed, well-nourished female who appears to be in no acute distress. She is alert and awake,hungry HEAD: Normocephalic without any lesion or mass noted. Facial features appear symmetric. OROPHARYNGEAL: Oropharynx without erythema or edema. NECK: Supple. No nuchal rigidity or lymphadenopathy. Trachea midline without deviation. CARDIAC: Regular rhythm, regular rate, S1 and S2 are heard. LUNGS: Clear to auscultation bilaterally. no wheeze, ABDOMEN: round, Soft, nontender, no organomegaly or masses. Bowel sounds are heard in all four quadrants. No rebound. No guarding. EXTREMITIES: trace edema. Pulses equal bilateral. NEUROLOGICAL: Patient mood and affect appropriate. No focal deficit SKIN:Warm and moist, pale Objective Remarks Im so hungry (Josefina Masters) A/P Assessment and Plan Severe GI bleed S/P EGD yesterday. Findings include, Reflux esophagitis, Hiatal hernia, Gastritis, Duodenal ulcer and duodenitis Monitor hgb which is trending back down. Patient feels better, but still tires easily. Maintained on clear liquid diet per GI, Will discuss low residue diet after dc. Nutrition consult ordered. Need to trend hgb for any further drops. recheck at 1100 Epigastric pain. improved Lactic acid sepsis., resolved, probable GI . Gastroesophageal reflux disease. low residue diet, PPI drip, will need PO after dc. Tobacco abuse., discussed no smoking , understands Leukocytosis, improving, probable from esphagitis Diabetes mellitus type 2, accucheck and SS, controlling better DC planning soon, home probable in am. Could transfer out of unit. Discussed With: Nurse, Family (pt.), Other (Dr. Avina, seen on his behalf) ( Josefina Masters) Assessment and Plan pt is resting comfortably in bed she ate well No abd pain No N/v No more melna or BRBPR she is cleared by GI for D/C she is eager to go home medically stable d/c home today see MRS see Orders f/u pcp & GI (Chris Avina MD) Josefina Masters Oct 12, 2016 09:09 Chris Avina MD Oct 12, 2016 17:27
[2016-10-12] MEDS: SODIUM CHLOR 0.9% 1000 ML INJ 1,000 ML IV SCH (10:42)
[2016-10-12] MEDS: PANTOPRAZOLE INJ 80 MG in SODIUM CHLORIDE 0.9% INJ 100 ML IV SCH (11:10)
[2016-10-12 12:00] VITALS: BP 139/74; PULSE 76; RESP 16; TEMP 98.4; O2SAT 99
[2016-10-12 13:01] VITALS: PULSE 78
[2016-10-12 14:25] LABS: HEMATOCRIT 24.3 % (35.0-46.0)
--- NOTE | 2016-10-12 16:50 | HHI.GIFU ---
Subjective Remarks Pt in bed, visiting with family, begging to go home. Denies pain, n/v, bleeding. (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) Objective Vitals I&O Vital Signs Date Time Temp Pulse Resp B/P Pulse Ox O2 Delivery O2 Flow Rate FiO2 10/12/16 13:01 78 10/12/16 12:00 98.4 76 16 139/74 99 10/12/16 08:00 97.9 80 24 138/67 100 10/12/16 03:21 98.2 78 16 130/81 100 10/11/16 23:21 97.8 86 19 128/76 99 10/11/16 19:21 98.6 88 21 152/86 100 10/11/16 19:00 100 Room Air I/O 10/11/16 10/11/16 10/11/16 10/12/16 10/12/16 10/12/16 07:00 15:00 23:00 07:00 15:00 23:00 Intake Total 589 ml 1045 ml 552 ml 440 ml Balance 589 ml 1045 ml 552 ml 440 ml Intake Oral 250 ml IV Total 339 ml 795 ml 552 ml 440 ml Packed Cells 250 ml # Voids 1 1 3 2 3 Laboratory Laboratory Tests Test 10/11/16 10/11/16 10/12/16 10/12/16 16:55 23:01 03:50 14:00 Hemoglobin 8.1 7.5 7.2 7.4 Hematocrit 25.7 23.7 23.1 24.3 White Blood Count 11.9 Red Blood Count 3.07 Mean Corpuscular Volume 75.3 Mean Corpuscular Hemoglobin 23.6 Mean Corpuscular Hemoglobin 31.4 Concent Red Cell Distribution Width 19.6 Platelet Count 201 Mean Platelet Volume 8.8 Neutrophils (%) (Auto) 64.1 Lymphocytes (%) (Auto) 24.4 Monocytes (%) (Auto) 4.4 Eosinophils (%) (Auto) 6.1 Basophils (%) (Auto) 1.0 Neutrophils # (Auto) 7.6 Lymphocytes # (Auto) 2.9 Monocytes # (Auto) 0.5 Eosinophils # (Auto) 0.7 Basophils # (Auto) 0.1 CBC Comment AUTO DIFF Differential Comment AUTO DIFF CONFIRMED Ovalocytes 1+ Sodium Level 142 Potassium Level 3.5 Chloride Level 110 Carbon Dioxide Level 24.7 Anion Gap 7 Blood Urea Nitrogen 9 Creatinine 0.51 Estimat Glomerular Filtration 130 Rate Random Glucose 94 Calcium Level 7.3 Protein Corrected Calcium 8.1 Total Protein 5.[address] Angiography 10/11/1635 Signed Impressions: Service Date/Time: Tuesday, October 11, 2016 02:39 - CONCLUSION: 1. No evidence of pulmonary embolism. 2. There is a 5 mm and 6 mm pulmonary nodule the right upper lung. This finding is nonspecific. Recommend followup noncontrast CT thorax in 6 months to check stability. 3. No acute intrathoracic disease. Yadiel Hill MD Abdomen/Pelvis CT 10/11/1635 Signed Impressions: Service Date/Time: Tuesday, October 11, 2016 02:39 - CONCLUSION: 1. 3 cm bilateral ovarian cysts. 2. Otherwise, unremarkable exam for patient's age. Yadiel Hill MD Physical Exam HEENT: EOMI; normocephalic; atraumatic; no jaundice. CHEST: Chest is clear to auscultation and percussion. CARDIAC: Regular rate and rhythm with no murmur gallop or rubs. ABDOMEN: Soft, obese, nontender; no hepatosplenomegaly; bowel sounds are present in all four quadrants. EXTREMITIES: No clubbing, cyanosis, or edema. SKIN: Normal; no rash; no jaundice. 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 (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 [facility]) Assessment and Plan Plan ASSESSMENT: - Severe anemia. HH today 7.4, 24.3 stable from yesterday. s/p EGD 10/11---> reflux esophagitis, HH, food residue obscuring complete eval, gastritis, duodenal ulcer, duodenitis, partial gastric outlet obstruction. H/H was 5.1/ 16.3 on admission. - Abdominal pain, N/V. improved. Reports burning/dull aching pain in epigastric area, aggravated by food with melena x 2 weeks. PPI. - GERD. Recently started on Protonix. - HTN, Hyperlipidemia, DM. Per primary. PLAN: - multi with iron - PPI - follow up in office in 1 week - avoid NSAIDs, ASA - low residue diet - Supportive care - okay to DC from GI standpoint This pt seen by myself and Dr Ferrera and this note is written on his behalf ( 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) Physician Comments Patient seen and examined Agree with above Continue with current supportive care Monitor labs Follow-up with GI Recommend iron supplementation Continue with PPI and avoid NSAIDs and aspirin (Sushil Ferrera MD) 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 Oct 12, 2016 16:50 Sushil Ferrera MD Oct 12, 2016 22:15
[2016-10-12 17:08] VITALS: BP 140/82; PULSE 81; RESP 24; TEMP 97.9; O2SAT 100
[2016-10-12] MEDS ORDERED: PROT40TA PO (17:30)
== END 2016-10-12 17:45 | disposition home or self-care (01) | DRG 378 ==
LOC: NEPC 00:13 → NEDA 03:18 → N03A 05:43
PROVIDERS: ADMIT Specialist; ATTEND Specialist
PROC: 30233N1 Transfusion of Nonautologous Red Blood Cells into Peripheral Vein, Percutaneous Approach (ICD-10-PCS; 2016-10-11)
PROC: 0DB98ZX Excision of Duodenum, Via Natural or Artificial Opening Endoscopic, Diagnostic (ICD-10-PCS; principal; 2016-10-11 15:15)
DX: K92.1 Melena (principal); K31.1 Adult hypertrophic pyloric stenosis; E11.65 Type 2 diabetes mellitus with hyperglycemia; I10 Essential (primary) hypertension; F17.210 Nicotine dependence, cigarettes, uncomplicated; D50.0 Iron deficiency anemia secondary to blood loss (chronic); E78.5 Hyperlipidemia, unspecified; R91.1 Solitary pulmonary nodule; K21.0 Gastro-esophageal reflux disease with esophagitis; K44.9 Diaphragmatic hernia without obstruction or gangrene; Z79.4 Long term (current) use of insulin; N83.202 Unspecified ovarian cyst, left side; N83.201 Unspecified ovarian cyst, right side; K26.9 Duodenal ulcer, unspecified as acute or chronic, without hemorrhage or perforation; K29.80 Duodenitis without bleeding
CPT/HCPCS: 36430; 71275; 74177; 80048; 80053; 81001; 82550; 82948; 83605; 83690; 83735; 83880; 84155; 84443; 84484; 85014; 85018; 85025; 85610; 85730; 86850; 86900; 86901; 86920; 87641; 88305; 93005; 96361; 96365; 96375; C9113; J1815; J2270; J2405; J7030; J7050; P9016; Q9967

== ENCOUNTER 2016-10-23 12:45 | Emergency (ER) | payer BC ==
[2016-10-23] VITALS (10 sets, daily range): BP systolic 111–136; BP diastolic 57–85; PULSE 94–126; RESP 16–24; TEMP 97.6–98.6; O2SAT 94–100
[~2016-10-23] VITALS: Ht 165.1 cm; Wt 120.0 kg
[~2016-10-23 12:45] MED LIST changes: -CARA1SUS3 PO; +ESCI5TAB PO; -GABA300C5 PO; +GLUC2.5T2 PO; -METF1000 PO
[2016-10-23] MEDS ORDERED: SODIUM CHLOR 0.9% 1000 ML INJ 1,000 ML IV SCH (13:01)
[2016-10-23 13:03] LABS: MEAN CORPUSCULAR HGB CONC 28.8 % (32.0-36.0)
[2016-10-23] MEDS ORDERED: ONDANSETRON HCL 4 MG/2 ML VIAL IM ONE (13:15)
[2016-10-23] MEDS ORDERED: PANTOPRAZOLE SODIUM 40 MG VIAL IVP ONE (13:15)
[2016-10-23] MEDS ORDERED: MORPHINE SULFATE 4 MG/ML INJ IV PUSH ONE ×2 (13:15→15:00)
[2016-10-23] MEDS ORDERED: SODIUM CHLORIDE 0.9% FLUSH 10 ML FLUSH IVF PRN (13:15)
--- NOTE | 2016-10-23 14:47 | PD ---
HPI Chief Complaint: I think Im bleeding Time Seen by Provider: 13:01 Travel History International Travel<30 days: No Contact w/Intl Traveler<30days: No Traveled to known affect area: No History of Present Illness HPI Patient is a 46-year-old female with a history of gastric cancer diagnosed recently presents emergency department with tachycardia shortness of breath and fatigue. Patient states that she was admitted last month for GI bleeding and to be transfused multiple units. Patient states that she has had some mild abdominal cramping recently but she is fairly certain that she is going to need some more blood. Patient states she has an appointment with her surgeon tomorrow which is a first appointment and she is eager to find out her surgical options industrially wants to be discharged today. She states she's been passing some bright red blood per rectum. Review the records confirms the patient's history that she had hemoglobin of 7 last month and had to be admitted for multiple transfusions. Patient was seen by GI and had a scope and was deemed to be stable for discharge. No discharge summary is yet been transcribed. PFSH Past Medical History Cancer: No Cardiovascular Problems: No Diabetes: Yes Diminished Hearing: No Endocrine: Yes Gastrointestinal Disorders: No Genitourinary: No Hepatitis: No Hiatal Hernia: Yes Hypertension: Yes Immune Disorder: No Musculoskeletal: No Neurologic: No Psychiatric: No Reproductive: No Respiratory: No Thyroid Disease: No Past Surgical History Abdominal Surgery: Yes (APPENDECTOMY/ X2 LIVER BIOPSIES) Appendectomy: Yes Pacemaker: No Other Surgery: Yes (2 ABD hernia surgeries) Social History Alcohol Use: No Tobacco Use: Yes (5 CIGS PER DAY PER PT) Substance Use: No Allergies-Medications (Allergen,Severity, Reaction): Coded Allergies: No Known Allergies (Verified , 10/11/16) Reported Meds & Prescriptions Reported Meds & Active Scripts Active Protonix (Pantoprazole Sodium) 40 Mg Tab 40 Mg PO BID Reported Escitalopram (Escitalopram Oxalate) 5 Mg Tab 10 Mg PO DAILY Glucovance (Glyburide-Metformin) 2.5-500 Mg Tab 2 Tab PO BID Cozaar (Losartan Potassium) 50 Mg Tab 50 Mg PO DAILY Gabapentin 600 Mg Tab 900 Mg PO HS Lantus Inj (Insulin Glargine) 1,000 Unit/10 Ml Vial 58 Units SQ BID Review of Systems Except as stated in HPI: all other systems reviewed are Neg Physical Exam Narrative GENERAL: Well-developed well-nourished, appears mildly anxious. SKIN: Pale mucous membranes, pale conjunctiva. HEAD: Atraumatic. Normocephalic. EYES: Pupils equal and round. No scleral icterus. No injection or drainage. ENT: No nasal bleeding or discharge. Mucous membranes pink and moist. NECK: Trachea midline. No JVD. CARDIOVASCULAR: Rate and rhythm with tachycardia.. No murmur appreciated. RESPIRATORY: No accessory muscle use. Clear to auscultation. Breath sounds equal bilaterally. GASTROINTESTINAL: Abdomen soft, non-tender, nondistended. Hepatic and splenic margins not palpable. MUSCULOSKELETAL: No obvious deformities. No clubbing. No cyanosis. No edema. NEUROLOGICAL: Awake and alert. No obvious cranial nerve deficits. Motor grossly within normal limits. Normal speech. PSYCHIATRIC: Appropriate mood and affect; insight and judgment normal. Data Data Last Documented VS Vital Signs Date Time Temp Pulse Resp B/P Pulse Ox O2 Delivery O2 Flow Rate FiO2 10/23/16 18:30 98.3 96 20 127/63 99 Room Air Orders Complete Blood Count With Diff (10/23/16 13:01) Comprehensive Metabolic Panel (10/23/16 13:01) Prothrombin Time / Inr (Pt) (10/23/16 13:01) Act Partial Throm Time (Ptt) (10/23/16 13:01) Urinalysis - C+S If Indicated (10/23/16 13:01) Type And Screen (10/23/16 13:01) Ecg Monitoring (10/23/16 13:01) Iv Access Insert/Monitor (10/23/16 13:01) Oximetry (10/23/16 13:01) Pantoprazole Inj (Protonix Inj) (10/23/16 13:15) Sodium Chlor 0.9% 1000 Ml Inj (Ns 1000 M (10/23/16 13:01) Sodium Chloride 0.9% Flush (Ns Flush) (10/23/16 13:15) Ondansetron Inj (Zofran Inj) (10/23/16 13:15) Morphine Inj (Morphine Inj) (10/23/16 13:15) Morphine Inj (Morphine Inj) (10/23/16 15:00) Red Blood Cells (Rbc) (10/23/16 15:07) Blood Product Administration .UPON TRANSFUSION (10/23/16 15:07) Sodium Chlor 0.9% 250 Ml Inj (Ns 250 Ml (10/23/16 15:15) Electrocardiogram (10/23/16 13:16) Labs Laboratory Tests Test 10/23/16 10/23/16 13:20 13:25 Crossmatch Leukocyte-Reduced Red Blood Cells Blood Bank Comment White Blood Count 16.0 TH/MM3 Red Blood Count 2.31 MIL/MM3 Hemoglobin 5.6 GM/DL Hematocrit 19.5 % Mean Corpuscular Volume 84.5 FL Mean Corpuscular Hemoglobin 24.4 PG Mean Corpuscular Hemoglobin 28.8 % Concent Red Cell Distribution Width 25.3 % Platelet Count 304 TH/MM3 Mean Platelet Volume 9.6 FL Neutrophils (%) (Auto) 74.4 % Lymphocytes (%) (Auto) 16.0 % Monocytes (%) (Auto) 4.1 % Eosinophils (%) (Auto) 4.9 % Basophils (%) (Auto) 0.6 % Neutrophils # (Auto) 11.9 TH/MM3 Lymphocytes # (Auto) 2.6 TH/MM3 Monocytes # (Auto) 0.7 TH/MM3 Eosinophils # (Auto) 0.8 TH/MM3 Basophils # (Auto) 0.1 TH/MM3 CBC Comment AUTO DIFF Differential Total Cells 100 Counted Neutrophils % (Manual) 70 % Band Neutrophils % 3 % Lymphocytes % 16 % Monocytes % 6 % Eosinophils % 3 % Basophils % 1 % Neutrophils # (Manual) 11.8 TH/MM3 Metamyelocytes 1 % Nucleated Red Blood Cells 1 /100 WBC Differential Comment FINAL DIFF MANUAL Platelet Estimate NORMAL Platelet Morphology Comment NORMAL Prothrombin Time 10.3 SEC Prothromb Time International 0.9 RATIO Ratio Activated Partial 22.8 SEC Thromboplast Time Urine Color LIGHT-YELLOW Urine Turbidity CLEAR Urine pH 5.[address] [place] 1.031 Urine Protein NEG mg/dL Urine Glucose (UA) 1000 mg/dL Urine Ketones 10 mg/dL Urine Occult Blood NEG Urine Nitrite NEG Urine Bilirubin NEG Urine Urobilinogen LESS THAN 2.0 MG/DL Urine Leukocyte Esterase NEG Urine RBC LESS THAN 1 /hpf Urine WBC 1 /hpf Urine Squamous Epithelial 1 /hpf Cells Urine Mucus FEW /lpf Microscopic Urinalysis Comment CULT NOT INDICATED Sodium Level 137 MEQ/L Potassium Level 4.0 MEQ/L Chloride Level 101 MEQ/L Carbon Dioxide Level 23.0 MEQ/L Anion Gap 13 MEQ/L Blood Urea Nitrogen 12 MG/DL Creatinine 0.83 MG/DL Estimat Glomerular Filtration 74 ML/MIN Rate Random Glucose 426 MG/DL Calcium Level 9.1 MG/DL Total Bilirubin 0.3 MG/DL Aspartate Amino Transf 27 U/L (AST/SGOT) Alanine Aminotransferase 24 U/L (ALT/SGPT) Alkaline Phosphatase 90 U/L Total Protein 6.4 GM/DL Albumin 2.9 GM/DL Blood Type A NEGATIVE Antibody Screen NEGATIVE MDM Medical Decision Making Medical Screen Exam Complete: Yes Emergency Medical Condition: Yes Differential Diagnosis GI bleeding, anemia, esophagitis, gastric cancer. Narrative Course Patient was roomed in the emergency department, fairly early on in her evaluation she stated that she did not want to stay overnight in the hospital. Her hemoglobin is 5, she's been ordered for 2 units PRBCs. I have explained to her in noted in terms that I'm very concerned about her leaving the hospital after these 2 units. With continued GI bleeding and hemoglobin this level she is at severe risk of , cardiac arrest, prolonged or permanent disability including but not limited to brain damage decreased pulmonary activity need for long-term intubation. I've explained all of these risks and the patient is verbalized understanding and accepted the risks and still wants to go home to follow up outpatient with Dr. Saldana. I have suggested to her that I could consult him as an inpatient and she still wishes to leave the hospital. Currently she is finishing the first unit, she will be given a second unit and then discharged AGAINST MEDICAL ADVICE. Diagnosis Primary Impression: GI bleed Qualified Code: K92.2 - Gastrointestinal hemorrhage, unspecified gastrointestinal hemorrhage type Additional Impression: Anemia Qualified Code: D64.9 - Anemia, unspecified type Disposition: 07 AGAINST MEDICAL ADVICE Familia Woody MD October 23, 2016 14:47
[2016-10-23 15:01] LABS: AUTOMATED NEUTROPHIL # 11.9 TH/MM3 (1.8-7.7); BASOPHIL # 0.1 TH/MM3 (0-0.2); BASOPHIL % 0.6 % (0.0-2.0); EOSINOPHIL # 0.8 TH/MM3 (0-0.4); EOSINOPHIL % 4.9 % (0.0-4.0); LYMPHOCYTE # 2.6 TH/MM3 (1.0-4.8); MEAN CELL VOLUME 84.5 FL (80.0-100.0); MEAN CORPUSCULAR HEMOGLOBIN 24.4 PG (27.0-34.0); MONO % 4.1 % (0.0-8.0); NEUT % 74.4 % (16.0-70.0); PLATELET COUNT 304 TH/MM3 (150-450); RED BLOOD COUNT 2.31 MIL/MM3 (4.00-5.30); RED CELL DISTRIBUTION WIDTH 25.3 % (11.6-17.2)
[2016-10-23 15:04] LABS: HEMO FLAGS AUTO DIFF
[2016-10-23 15:07] LABS: HEMATOCRIT 19.5 % (35.0-46.0)
[2016-10-23] MEDS ORDERED: SODIUM CHLOR 0.9% 250 ML INJ 250 ML IV ONE (15:15)
[2016-10-23 15:16] LABS: BLOOD, URINE NEG (NEG); COMMENT (UR) CULT NOT INDICATED; CULTURE IF INDICATED CULT NOT INDICATED; GLUCOSE,URINE 1000 mg/dL (NEG); KETONE, URINE 10 mg/dL (NEG); MUCUS URINE FEW /lpf (OCC); NITRITE,URINE NEG (NEG); SQUAMOUS EPITHELIAL CELL URINE 1 /hpf (0-5); URINE COLOR LIGHT-YELLOW (YELLW/STRAW)
[2016-10-23 15:21] LABS: APTT (PATIENT) 22.8 SEC (24.3-30.1); INTERNATIONAL NORMALIZED RATIO 0.9 RATIO; PROTHROMBIN TIME - PATIENT 10.3 SEC (9.8-11.6)
[2016-10-23 15:35] LABS: ALKALINE PHOSPHATASE 90 U/L (45-117); ALT (GPT) 24 U/L (10-53); ANION GAP 13 MEQ/L (5-15); AST (GOT) 27 U/L (15-37); BLOOD UREA NITROGEN 12 MG/DL (7-18); CHLORIDE 101 MEQ/L (98-107); GLOMERULAR FILTRATION RATE 74 ML/MIN (>89); SODIUM (NA) 137 MEQ/L (136-145); TOTAL BILIRUBIN ADULT 0.3 MG/DL (0.2-1.0)
[2016-10-23 15:37] LABS: BANDS 3 % (0-6); BASOPHILS 1 % (0-2); CORRECTED NUCLEATED RBC 1 /100 WBC (0-0); EOSINOPHILS 3 % (0-4); METAMYELOCYTES 1 % (0-1); NEUTROPHIL # MANUAL DIFF 11.8 TH/MM3 (1.8-7.7); POLYS (SEG NEUTROPHILS) 70 % (16-70); WBC DIFF SAMPLE 100
[2016-10-23 15:38] LABS: PLATELET ESTIMATE SMEAR NORMAL (NORMAL); PLATELET MORPHOLOGY NORMAL (NORMAL); SCAN/DIFF FINAL DIFF MANUAL
--- NOTE | 2016-10-24 11:25 | EKG ---
Date Performed: 10/23/2016 Time Performed: 13:16:57 PTAGE: 46 years EKG: SINUS TACHYCARDIA NONSPECIFIC ST & T-WAVE ABNORMALITY ABNORMAL RHYTHM ECG INTERPRETATION BA SED ON A DEFAULT AGE OF 40 YEARS NO PREVIOUS TRACING DOCTOR: Mathew Barahona Interpretating Date/Time 10/24/2016 11:20:06
== END 2016-10-24 00:16 | disposition left against medical advice (07) ==
LOC: NEPE 12:45
DX: C16.9 Malignant neoplasm of stomach, unspecified (principal); K92.2 Gastrointestinal hemorrhage, unspecified; D64.9 Anemia, unspecified; F17.210 Nicotine dependence, cigarettes, uncomplicated; I10 Essential (primary) hypertension
CPT/HCPCS: 36430; 80053; 81001; 85007; 85027; 85610; 85730; 86850; 86900; 86901; 86920; 93005; 96374; 96375; 96376; 99285; C9113; J2270; J7030; J7050; P9016

== ENCOUNTER → 2016-11-22 | Day surgery (SDC) | payer BC ==
[~2016-11-22] MED LIST changes: +BUPIVACAINE/EPINEPHRINE 0.25% PF 10 ML VIAL ONE; +HEPARIN SODIUM - IV 10,000 UNITS/10 ML VIAL ONE; +LACTATED RINGER'S 1000 ML INJ 1,000 ML ONE; +LIDOCAINE 1%/EPINEPHrine 1:100,000 SOLN 50 ML VIAL ONE; +MEPERIDINE HCL 25 MG/ML VIAL ONE; +MIDAZOLAM HCL 2 MG/2 ML VIAL ONE; +PROPOFOL 500 MG/50 ML BTL IV ONE; +SODIUM CHLORIDE 0.9% 20 ML VIAL ONE; +SODIUM CHLORIDE 0.9% INJ 10 ML ONE; +ceFAZolin INJ 1,000 MG VIAL ONE
--- NOTE | 2016-11-22 11:27 | TN ---
cc: FLO OJEDA DATE OF SURGERY 11/22/2016 PREOPERATIVE DIAGNOSIS Stage III gastric adenocarcinoma. POSTOPERATIVE DIAGNOSIS Stage III gastric adenocarcinoma. PROCEDURE 1. Rgsiko-V-Aexj placement (PowerPort) in the left subclavian Vein. 2. Intraoperative interpretation by of intraoperative fluoroscopic images. ATTENDING SURGEON Flo Ojeda MD HEATER OPERATOR None ANESTHESIA TIVA and local anesthetic BLOOD LOSS Less than 10 cc COMPLICATIONS None FINDINGS Aspiration of blood and flushing of heparinized saline in the [id number]. INDICATIONS FOR PROCEDURE The patient is a 46 year-old female with stage II gastric cancer requires adjuvant chemotherapy. The risks, benefits and alternatives to Jnoyww-N-[id number] placement were discussed with the patient prior to the proceed. PROCEDURE After informed obtained was obtained, the patient was taken to the operating room at [facility], placed in the supine position. She was place under TIVA anesthetic. Her left chest and neck were prepped and draped in a sterile fashion. Time-out was performed. We localize the area of the planned port site and percutaneous stick under the left clavicle. We then accessed the left subclavian vein on the first attempt with an 18 gauge finder needle and passed the wire without difficulty. We used fluoroscopy to confirm this to be in the venous system. We then made a incision at the percutaneous stick site and made a subcutaneous pocket with the Bovie electrocautery. We used the dilator to follow the dilator/introducer assembly to pass the catheter into the subclavian venous system without difficulty and then used the breakaway dilator system to remove the sheath. We confirmed this to be at approximately 21.5 cm to the tip line atriocaval junction and with good length in the pocket. We assembled the Port-A-Cath according manufacture's recommendations without difficulty. We placed it into the pocket and ensured there was no kinking. This was aspirated of blood and flushed with heparinized saline. Fluoroscopy showed that the atriocaval junction with no kinking in the catheter tract. We then closed these the pocket with 3-0 deep dermal Vicryl's followed by 4-0 Monocryl and Dermabond. The patient was discontinued from anesthesia and taken to the PACU in stable condition. The patient tolerated the procedure well. No apparent complications. All counts were correct and I was present and scrubbed throughout the entire procedure. MD VANCE Clark/PIERCE /11:10 AM 11:20 AM
== END | disposition home or self-care (01) ==
LOC: ESDC 08:52
PROVIDERS: ATTEND Surgery
DX: Z45.2 Encounter for adjustment and management of vascular access device (principal); C16.8 Malignant neoplasm of overlapping sites of stomach; E11.9 Type 2 diabetes mellitus without complications; Z79.4 Long term (current) use of insulin
CPT/HCPCS: 00532; 36561; 76000; 82948; C1788; J0690; J1644; J2175; J2250; J3010; J7120; J1642

== ENCOUNTER → 2017-05-24 | Day surgery (SDC) | payer BC ==
[~2017-05-24] MED LIST changes: +BUPIVACAINE/EPINEPHRINE 0.25% PF 30 ML VIAL ONE; -HEPARIN SODIUM - IV 10,000 UNITS/10 ML VIAL ONE; -LIDOCAINE 1%/EPINEPHrine 1:100,000 SOLN 50 ML VIAL ONE; -MEPERIDINE HCL 25 MG/ML VIAL ONE; +MORPHINE SULFATE 4 MG/ML INJ ONE; +ONDANSETRON HCL 4 MG/2 ML VIAL IV PUSH ONE; +PROPOFOL 200 MG/20 ML AMP IV ONE; -PROPOFOL 500 MG/50 ML BTL IV ONE; +ROCURONIUM INJ 50 MG/5 ML SYRINGE IV PUSH ONE; -SODIUM CHLORIDE 0.9% 20 ML VIAL ONE; -SODIUM CHLORIDE 0.9% INJ 10 ML ONE; +ceFAZolin 2 GM PREMIX 50 ML ONE; -ceFAZolin INJ 1,000 MG VIAL ONE; +oxyCODONE/ACETAMINOPHEN 5 MG/325 MG TAB ONE
--- NOTE | 2017-05-24 13:41 | TN ---
cc: FLO OJEDA DATE OF SURGERY 05/24/2017 PREOPERATIVE DIAGNOSIS 1. History of locally advanced gastric cancer status with chemotherapy and subtotal gastrectomy. 2. Ventral incisional recurrent hernia 4 cm x 4 cm. 3. Obsolete Port-A-Cath left subclavian vein. 4. Palpable breast mass right breast at 9 o'clock 5. Sebaceous cyst left chest wall. POSTOPERATIVE DIAGNOSIS 1. History of locally advanced gastric cancer status with chemotherapy and subtotal gastrectomy. 2. Ventral incisional recurrent hernia 4 cm x 4 cm. 3. Obsolete Port-A-Cath left subclavian vein. 4. Palpable breast mass right breast at 9 o'clock 5. Sebaceous cyst left chest wall. 6. Nodular appearing liver consistent with fibrosis or cirrhosis. PROCEDURE 1. Diagnostic laparoscopy 2. Laparoscopic ventral hernia repair with mesh 4 cm x 4 cm. 3. Laparoscopic core type liver biopsy left liver lobe. 4. Needle-localized right breast excisional breast biopsy. 5. Excision of left chest wall sebaceous cyst. 6. Removal of Port-A-Cath left subclavian vein. ATTENDING SURGEON Flo Ojeda MD SUPERVISOR GEAR REPAIR SELINA Persaud BLOOD LOSS 100 cc COMPLICATIONS None FINDINGS 1. Extensive adhesions of the abdominal wall with a 4 cm x 4 cm ventral incisional hernia. 2. Nodular cirrhotic appearing liver with small amount of ascites. 3. Excisional breast biopsy and specimen per radiology intraoperative consultation. INDICATIONS FOR PROCEDURE The patient is a 46-year-old female who several months ago was diagnosed with locally advanced gastric cancer and upper GI bleed. The patient required subtotal gastrectomy for treatment as well as a follow up by adjuvant chemotherapy. The patient developed incisional ventral hernia as well as a chronic recurring mass of her right lateral breast including a secondary infection and drainage. Discussed with the patient about the risks, benefits, and alternatives to hernia repair as well as excisional biopsy of her symptomatic breast mass which was found to have low suspicion for malignancy on imaging. It was discussed also will request to have her Port-A-Cath removed if staging laparoscopy showed no evidence of recurrent disease. PROCEDURE The patient was taken to the operating room at [facility], placed under endotracheal anesthesia. This patient's abdomen was prepped and draped in a sterile fashion. Time-out was performed. We started with the diagnostic laparoscopy. The abdomen was entered at the left lateral clavicular line using a 5 mm 0 degrees camera in an OptiView type entry. We entered the abdominal cavity without difficulty and placed insufflation. We used a 5 mm 30 degree camera to survey the abdomen. No evidence of any complication from our entry. We were unable to place two 5 mm ports in the left lateral position as well. We then were able to survey the abdomen. There was a nodular appearing liver with a small amount of ascites. The transverse colon was adhered up over the ventral hernia. We then took down the adhesions approximately 30 minutes of lysis of adhesions using sharp and blunt dissection to take down a small portion of the omentum and remaining transverse colon. Once we had taken this down, there was a well-defined 4 cm x 4 cm ventral incisional hernia. We compared this with a mesh type repair. There was no evidence of any recurrent malignancy or carcinomatosis. We were able to place a 10 cm x 10 cm Ultrapro mesh was custom cut to more of an oval type fashion to fit the patient's anatomy. We placed this through the 5-mm port and unrolled this which stuck up against the abdominal wall. We used a ProTacker to place tacks 360 degrees around the mesh. We had approximately 4 cm of coverage all around the hernia. We then placed four transfascial sutures using a Bloomer suture passer using 2-0 Prolene sutures. Once we completed the mesh repair, we had an excellent technical repair. The mesh lay in good position without bunching. We then were able to turn our attention towards the liver biopsy. We felt that this was an unexpected finding and the patient would benefit from a liver biopsy. We used the Bloomer type needle biopsy in the left lobe of the liver x1 past. There was a very small amount of oozing from this blood from this mass with a small amount of electrocautery. We had complete hemostasis. We also placed a small piece of Surgicel on there as well. At this point in time, we did irrigate out the abdomen until all succinate was clear. We had no evidence of any complication and returned our attention towards closure. We removed ports under the visualization of the laparoscope and expressed pneumoperitoneum. We closed the port sites with 4-0 Monocryl and Dermabond and the transfascial sites with Dermabond. We then turned attention of the right breast biopsy. We performed a small elliptical incision at the needle core area as there was some necrotic skin in this area due to the patient's recurrent infection. We again lifted this out approximately 1 cm x 3 cm at the 9 o'clock right lateral breast. We used the Bovie electrocautery as well as the Metzenbaum scissors to dissect down and took down basically the entirety. We then turned our attention to the posterior wire because this is where the mass was seen. A complete excision, grossly felt soft and benign. This was passed off for radiology evaluation and was found to the lesion found on imaging. We then obtained excellent hemostasis with the Bovie electrocautery and closed the breast biopsy site with intermediate closure with 3-0 Vicryl and 4-0 Monocryl and Dermabond. The patient's sebaceous cyst on the left chest wall was instilled with local anesthetic and this was excised in an elliptical type fashion using the 15 blade scalpel. We had excellent hemostasis with the Bovie and closed this with 3-0 Vicryl and 4-0 Monocryl. This excision was 4 cm x 1 cm. There were no signs of infection. Finally, we turned our attention towards removal of the patient's Port-A-Cath. We were able to reopen her previous excision with a 15 blade scalpel after local anesthetic was instilled. We were able to dissect down with the Metzenbaums to the catheters, this was grasped with a Efraín type and actually we were able to deliver the entire catheter and the port intact complete all the way to the tip with minimal effort. We had no bleeding from the catheter site. We placed a [id number] 3-0 Vicryl suture at the catheter site tract. We closed the skin with 4-0 Monocryl and Dermabond. At this point in time, the patient was discontinued from anesthesia, taken to the PACU in stable condition. The patient tolerated the procedure well. No apparent complications. All counts were correct. I was present and scrubbed for the entire procedure. MD VANCE Clark/PIERCE /12:41 PM /1:09 PM
== END | disposition home or self-care (01) ==
LOC: ESDC 07:01
PROVIDERS: ATTEND Surgery
DX: K43.2 Incisional hernia without obstruction or gangrene (principal); N63.10 Unspecified lump in the right breast, unspecified quadrant; L72.3 Sebaceous cyst; Z85.028 Personal history of other malignant neoplasm of stomach; Z45.2 Encounter for adjustment and management of vascular access device; K74.60 Unspecified cirrhosis of liver; E11.9 Type 2 diabetes mellitus without complications; Z79.4 Long term (current) use of insulin
CPT/HCPCS: 00400; 00752; 00790; 11404; 19125; 36590; 49321; 49656; 82948; 88304; 88307; 88313; C1781; J0690; J2250; J2270; J2405; J3010; J7120; 88305

== ENCOUNTER 2017-06-07 11:53 | Observation (INO) | payer BC ==
[2017-06-07] VITALS (8 sets, daily range): BP systolic 111–161; BP diastolic 57–76; PULSE 92–128; RESP 8–20; TEMP 96.6–98.3; O2SAT 98–100
[~2017-06-07 11:53] MED LIST changes: -BUPIVACAINE/EPINEPHRINE 0.25% PF 10 ML VIAL ONE; -BUPIVACAINE/EPINEPHRINE 0.25% PF 30 ML VIAL ONE; -LACTATED RINGER'S 1000 ML INJ 1,000 ML ONE; -MIDAZOLAM HCL 2 MG/2 ML VIAL ONE; -MORPHINE SULFATE 4 MG/ML INJ ONE; -ONDANSETRON HCL 4 MG/2 ML VIAL IV PUSH ONE; -PROPOFOL 200 MG/20 ML AMP IV ONE; -ROCURONIUM INJ 50 MG/5 ML SYRINGE IV PUSH ONE; -ceFAZolin 2 GM PREMIX 50 ML ONE; -oxyCODONE/ACETAMINOPHEN 5 MG/325 MG TAB ONE
[2017-06-07] MEDS ORDERED: SODIUM CHLOR 0.9% 1000 ML INJ 1,000 ML IV ONE (12:15)
[2017-06-07] MEDS ORDERED: SODIUM CHLORIDE 0.9% FLUSH 10 ML FLUSH IVF PRN (12:15)
[2017-06-07] MEDS ORDERED: FERR325T18 PO (12:27)
[2017-06-07] MEDS ORDERED: METO-484 PO (12:27)
[2017-06-07] MEDS ORDERED: PANTOPRAZOLE INJ 80 MG in SODIUM CHLORIDE 0.9% INJ 100 ML IV SCH (12:31)
[2017-06-07] MEDS ORDERED: PANTOPRAZOLE INJ 80 MG in SODIUM CHLORIDE 0.9% INJ 35 ML IV ONE (12:31)
--- NOTE | 2017-06-07 12:31 | PD ---
HPI Chief Complaint: Abnormal Results Time Seen by Provider: 12:07 Travel History International Travel<30 days: No Contact w/Intl Traveler<30days: No Traveled to known affect area: No History of Present Illness HPI 46-year-old female with history of gastric cancer presents to the emergency room for blood transfusion. Patient had routine blood work outpatient yesterday and was called by her oncologist, Dr. Cavazos, today with instructions to go to the emergency room because her hemoglobin was 5. States she has had multiple transfusions in the past because of bleeding from her GI tract. Patient's that she had bleeding tumor in her stomach and would expel blood from her rectum. States recently she has had increasing tarriness to her stool but denies any bright red blood, dark stools, or hematemesis. She has had dizziness since being diagnosed with cancer and worsening weakness, shows of breath, and palpitations for the past several weeks. Patient is on Eliquis for a pulmonary embolism. Patient was supposed to have an appointment with her air saw operator, Dr. Mary, today but had to come to the hospital instead. Appointment was to discuss stopping Eliquis to go forward with a endoscopy to evaluate for continued bleeding from her previously resected tumor. PCP is Dr. De Los Santos. Substation Electrician is [facility] Past Medical History Cancer: Yes (gastric CA, LYMPHNODES) Cardiovascular Problems: Yes Chemotherapy: Yes Diabetes: Yes Patient Takes Glucophage: Yes Diminished Hearing: No Endocrine: Yes Gastrointestinal Disorders: No Genitourinary: No Hepatitis: No Hiatal Hernia: Yes Hypertension: Yes Immune Disorder: No Inguinal Hernia: Yes (x 2) Musculoskeletal: No Neurologic: No Psychiatric: No Reproductive: No Respiratory: Yes (BLOOD CLOT IN RIGHT LUNG ON ELIQUIS ) Thyroid Disease: No ?: Not Past Surgical History Abdominal Surgery: Yes (APPENDECTOMY/ X2 LIVER BIOPSIES) Appendectomy: Yes Pacemaker: No Other Surgery: Yes (2 ABD hernia surgeries) Social History Alcohol Use: No Tobacco Use: No (5 cigs daily) Substance Use: No Allergies-Medications (Allergen,Severity, Reaction): Coded Allergies: No Known Allergies (Verified , 10/11/16) Reported Meds & Prescriptions Reported Meds & Active Scripts Active Reported Ferrous Sulfate 325 Mg (65 Mg Iron) Tablet 325 Mg PO BIDPC Metoprolol-Hydrochlorothiazide 25-12.5 Mg Tab 1 Tab PO DAILY Glucovance (Glyburide-Metformin) 2.5-500 Mg Tab 1,000 Tab PO BID Cozaar (Losartan Potassium) 50 Mg Tab 50 Mg PO DAILY Gabapentin 600 Mg Tab 900 Mg PO TID Lantus Inj (Insulin Glargine) 1,000 Unit/10 Ml Vial 58 Units SQ BID Review of Systems Except as stated in HPI: all other systems reviewed are Neg Physical Exam Narrative GENERAL: Well-nourished, well-developed female in no acute distress. Afebrile. Ambulatory. SKIN: Focused skin assessment warm/dry. HEAD: Normocephalic. EYES: No scleral icterus. No injection or drainage. NECK: Supple, trachea midline. No JVD or lymphadenopathy. CARDIOVASCULAR: Tachycardic. Regular rhythm without murmurs, gallops, or rubs. RESPIRATORY: Breath sounds equal bilaterally. No accessory muscle use. Data Data Last Documented VS Vital Signs Date Time Temp Pulse Resp B/P (MAP) Pulse Ox O2 Delivery O2 Flow Rate FiO2 06/07/17 12:18 108 8 112/64 (80) 98 Room Air 06/07/17 11:55 97.6 Orders Orders Complete Blood Count With Diff (06/07/17 12:12) Comprehensive Metabolic Panel (06/07/17 12:12) Prothrombin Time / Inr (Pt) (06/07/17 12:12) Act Partial Throm Time (Ptt) (06/07/17 12:12) Type And Screen (06/07/17 12:12) Ecg Monitoring (06/07/17 12:12) Iv Access Insert/Monitor (06/07/17 12:12) Oximetry (06/07/17 12:12) Sodium Chloride 0.9% Flush (Ns Flush) (06/07/17 12:15) Sodium Chlor 0.9% 1000 Ml Inj (Ns 1000 M (06/07/17 12:15) Sodium Chloride 0.9... W/Pantoprazole In (06/07/17 12:31) Sodium Chloride 0.9... W/Pantoprazole In (06/07/17 12:31) Red Blood Cells (Rbc) (06/07/17 12:46) Blood Product Administration (06/07/17 12:46) Labs Laboratory Tests Test 06/07/17 12:10 White Blood Count 10.8 TH/MM3 Red Blood Count 2.42 MIL/MM3 Hemoglobin 6.4 GM/DL Hematocrit 20.5 % Mean Corpuscular Volume 84.9 FL Mean Corpuscular Hemoglobin 26.5 PG Mean Corpuscular Hemoglobin Concent 31.2 % Red Cell Distribution Width 19.4 % Platelet Count 213 TH/MM3 Mean Platelet Volume 9.8 FL Neutrophils (%) (Auto) 80.2 % Lymphocytes (%) (Auto) 4.6 % Monocytes (%) (Auto) 5.7 % Eosinophils (%) (Auto) 8.3 % Basophils (%) (Auto) 1.2 % Neutrophils # (Auto) 8.7 TH/MM3 Lymphocytes # (Auto) 0.5 TH/MM3 Monocytes # (Auto) 0.6 TH/MM3 Eosinophils # (Auto) 0.9 TH/MM3 Basophils # (Auto) 0.1 TH/MM3 CBC Comment DIFF FINAL Differential Comment Prothrombin Time 10.7 SEC Prothromb Time International Ratio 1.1 RATIO Activated Partial Thromboplast Time 26.1 SEC Blood Urea Nitrogen 16 MG/DL Creatinine 0.89 MG/DL Random Glucose 380 MG/DL Total Protein 6.2 GM/DL Albumin 2.2 GM/DL Calcium Level 8.1 MG/DL Alkaline Phosphatase 341 U/L Aspartate Amino Transf (AST/SGOT) 48 U/L Alanine Aminotransferase (ALT/SGPT) 26 U/L Total Bilirubin 0.6 MG/DL Sodium Level 137 MEQ/L Potassium Level 4.1 MEQ/L Chloride Level 103 MEQ/L Carbon Dioxide Level 26.9 MEQ/L Anion Gap 7 MEQ/L Estimat Glomerular Filtration Rate 68 ML/MIN MDM Medical Decision Making Medical Screen Exam Complete: Yes Emergency Medical Condition: Yes Medical Record Reviewed: Yes Differential Diagnosis Gastric cancer, GERD, GI bleed, anemia Narrative Course 46-year-old female presents to the emergency room after being told by her oncologist to come for a blood transfusion. She had outpatient labs yesterday that showed a hemoglobin in the 5 range. Patient has had associated dizziness, weakness, palpitations, and shortness of breath which are typical of her when she has low hemoglobin. She reports worsening tarry stools but denies any bright red blood in her vomit or stools. Physical exam reveals slightly pale, tired looking female. She is tachycardic. Hemoccult is positive. CBC shows chronic low hemoglobin of 6.4. CMP is only remarkable for elevated alkaline phosphatase and glucose. Patient was typed and screened and 2 units of packed red blood cells were ordered for transition. Patient is adamant about being discharged and has left AGAINST MEDICAL ADVICE in the past. She states she has been having symptoms for a long period of time and has outpatient endoscopy planned and does not see a reason to sit and wait in the hospital for procedures she will be having performed anyway. She is very stable in ED and symptoms have been ongoing for several weeks. Patient will be admitted for blood transfusion and then would like to be discharged without consultation to GI. She will return immediately for any worsening symptoms. She understands and agrees to plan. I spoke to Dr. Vivas agrees to admit this patient to Dr. Romero' service. HemaPrompt Point of Care Internal Pos. & Neg. Controls: Passed Fecal Specimen Occult Blood: Positive Diagnosis Primary Impression: Anemia Qualified Codes: D50.0 - Iron deficiency anemia secondary to blood loss ( chronic) Additional Impression: GI bleed Qualified Codes: K92.1 - Melena Admitting Information Admitting Physician Requests: Observation Condition: Stable Sarah Slaughter Jun 07, 2017 12:31
[2017-06-07 12:40] LABS: AUTOMATED NEUTROPHIL # 8.7 TH/MM3 (1.8-7.7); BASOPHIL # 0.1 TH/MM3 (0-0.2); BASOPHIL % 1.2 % (0.0-2.0); EOSINOPHIL # 0.9 TH/MM3 (0-0.4); EOSINOPHIL % 8.3 % (0.0-4.0); LYMPH % 4.6 % (9.0-44.0); LYMPHOCYTE # 0.5 TH/MM3 (1.0-4.8); MEAN CELL VOLUME 84.9 FL (80.0-100.0); MEAN CORPUSCULAR HEMOGLOBIN 26.5 PG (27.0-34.0); MEAN CORPUSCULAR HGB CONC 31.2 % (32.0-36.0); MONO % 5.7 % (0.0-8.0); NEUT % 80.2 % (16.0-70.0); PLATELET COUNT 213 TH/MM3 (150-450); RED BLOOD COUNT 2.42 MIL/MM3 (4.00-5.30); RED CELL DISTRIBUTION WIDTH 19.4 % (11.6-17.2); WHITE BLOOD COUNT 10.8 TH/MM3 (4.0-11.0)
[2017-06-07 12:43] LABS: HEMO FLAGS DIFF FINAL
[2017-06-07 12:47] LABS: HEMATOCRIT 20.5 % (35.0-46.0)
[2017-06-07 12:49] LABS: APTT (PATIENT) 26.1 SEC (24.3-30.1); INTERNATIONAL NORMALIZED RATIO 1.1 RATIO; PROTHROMBIN TIME - PATIENT 10.7 SEC (9.8-11.6)
[2017-06-07 12:56] LABS: ANION GAP 7 MEQ/L (5-15); AST (GOT) 48 U/L (15-37); BICARBONATE 26.9 MEQ/L (21.0-32.0); BLOOD UREA NITROGEN 16 MG/DL (7-18); CHLORIDE 103 MEQ/L (98-107); GLOMERULAR FILTRATION RATE 68 ML/MIN (>89); POTASSIUM 4.1 MEQ/L (3.5-5.1); SODIUM (NA) 137 MEQ/L (136-145)
[2017-06-07 12:59] LABS: ALKALINE PHOSPHATASE 341 U/L (45-117); ALT (GPT) 26 U/L (10-53); TOTAL BILIRUBIN ADULT 0.6 MG/DL (0.2-1.0)
[2017-06-07] MEDS ORDERED: SODIUM CHLOR 0.9% 250 ML INJ 250 ML IV ONE (15:00)
[2017-06-07] MEDS ORDERED: APIX5TAB PO (15:33)
[2017-06-07] MEDS ORDERED: SODIUM CHLOR 0.9% 1000 ML INJ 1,000 ML IV SCH (15:36)
--- NOTE | 2017-06-07 15:42 | HHI.HP ---
[facility] Service Family Medicine Primary Care Physician Floyd De Los Santos MD Admission Diagnosis anemia Diagnoses: International Travel<30 Days: No Contact w/Intl Traveler<30days: No Known Affected Area: No History of Present Illness 46-year-old female with history of gastrointestinal cancer diagnosed October 2016 status post chemotherapy and radiation presenting with acute on chronic anemia secondary to suspected chronic GI bleed and/or a side effect of chemotherapy. Her chemotherapy and radiation treatments were completed in January, and a PET scan was performed which was negative. Her chemotherapy port was removed earlier this month. She has been followed as an outpatient by her oncologist Dr. Rollins who performed a CBC which showed hemoglobin of 5 earlier this week. She was contacted and told that she needed to get transfused with blood, but it was too late in the day for her to obtain this transfusion in clinic, so she was told to go to the ER. [facility] and is due to be scheduled for panendoscopy once cardiology provides guidance on holding her Abram was which she takes for a pulmonary embolism diagnosed a month and a half ago. Today she feels well other than being dizzy and queasy, which is not new for her and has been going on for the last several months with this anemia. She has noted dark stools for the last 2-3 months as well, but she isn't taking iron supplementation for the majority of this time. (Ankit Gabriel MD) Review of Systems Constitutional: COMPLAINS OF: Fatigue, DENIES: Fever, Weight loss, Chills Endocrine: DENIES: Abnorml menstrual pattern Eyes: DENIES: Blurred vision Ears, nose, mouth, throat: DENIES: Throat pain, Ear Pain, Running Nose Respiratory: DENIES: Cough, Shortness of breath Cardiovascular: DENIES: Chest pain, Palpitations, Dyspnea on Exertion Gastrointestinal: COMPLAINS OF: Abdominal pain (residual from hernia surgery), Nausea, DENIES: Vomiting Genitourinary: DENIES: Abnormal vaginal bleeding, Urinary frequency, Dysuria Musculoskeletal: DENIES: Joint pain, Muscle aches Integumentary: DENIES: Rash Hematologic/lymphatic: DENIES: Bruising, Lymphadenopathy Immunologic/allergic: DENIES: Eczema Neurologic: DENIES: Abnormal gait, Headache, Localized weakness Psychiatric: DENIES: Anxiety, Depression (Ankit Gabriel MD) Past Family Social History Past Medical History October 2016-diagnosed with gastrointestinal malignancy - Resection of GI cancer performed in October - Chemotherapy and radiation following surgery from October to January - PET scan negative earlier this month Diabetes Hypertension 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 Anemia secondary to chronic GI bleed and/or chemotherapy toxicity Past Surgical History GI tumor resection in October 2016 May 24, 2017 - lumpectomy of left breast which resulted in benign tissue, chemotherapy port removal, abdominal wall hernia repair Reported Medications Reported Meds & Active Scripts Active Reported Eliquis (Apixaban) 5 Mg Tab 5 Mg PO BID Ferrous Sulfate 325 Mg (65 Mg Iron) Tablet 325 Mg PO BIDPC Metoprolol-Hydrochlorothiazide 25-12.5 Mg Tab 1 Tab PO DAILY Glucovance (Glyburide-Metformin) 2.5-500 Mg Tab 1,000 Tab PO BID Cozaar (Losartan Potassium) 50 Mg Tab 50 Mg PO DAILY Gabapentin 600 Mg Tab 900 Mg PO TID Lantus Inj (Insulin Glargine) 1,000 Unit/10 Ml Vial 58 Units SQ BID (Ankit Gabriel MD) Allergies: Coded Allergies: No Known Allergies (Verified , 10/11/16) Active Ordered Medications Current Medications Medications (Trade) Dose Ordered Sig/Jacinto Route Start Time Stop Time Status Last Admin (NS Flush) 2 ml UNSCH PRN IVF 06/07/17 12:15 Pantoprazole Sodium 80 mg/ Sodium Chloride 100 ml @ 10 mls/hr Q10H IV 06/07/17 12:31 Sodium Chloride 250 ml @ 15 mls/hr ONCE ONCE IV 06/07/17 15:00 06/08/17 07:39 (Ferrous Sulfate) 325 mg BIDPC PO 06/07/17 18:00 (Neurontin) 900 mg TID PO 06/07/17 18:00 (Levemir Inj) 58 units BID SQ 06/07/17 21:00 (Cozaar) 50 mg DAILY PO 06/08/17 09:00 Sodium Chloride 1,000 ml @ 100 mls/hr Q10H IV 06/07/17 15:36 (NS Flush) 2 ml UNSCH PRN IV FLUSH 06/07/17 15:45 (NS Flush) 2 ml BID IV FLUSH 06/07/17 21:00 (Narcan Inj) 0.4 mg UNSCH PRN IV PUSH 06/07/17 15:45 (Pari-Colace) 1 tab BID PO 06/07/17 21:00 (Milk Of Magnesia Liq) 30 ml Q12H PRN PO 06/07/17 15:45 (Senokot) 17.2 mg Q12H PRN PO 06/07/17 15:45 (Dulcolax Supp) 10 mg DAILY PRN RECTAL 06/07/17 15:45 (Lactulose Liq) 30 ml DAILY PRN PO 06/07/17 15:45 (Glucophage) 1,000 mg BIDPC PO 06/07/17 18:00 (Diabeta) 5 mg BIDPC PO 06/07/17 18:00 (Toprol Xl) 25 mg DAILY PO 06/08/17 09:00 (Microzide) 12.5 mg DAILY PO 06/08/17 09:00 Family History Several family members on father's side of the family with breast and uterine cancer. Both parents were healthy. Social History Lives in a house with her daughter and son; of 30 years left her after finding out she had cancer. Alcohol: Denies use Tobacco: Cutting back, smokes 5 cigarettes per day currently Drugs: Denies use (Ankit Gabriel MD) Physical Exam Vital Signs Vital Signs Date Time Temp Pulse Resp B/P (MAP) Pulse Ox O2 Delivery O2 Flow Rate FiO2 06/07/17 15:31 98.2 92 18 115/66 100 06/07/17 15:02 97.5 96 14 120/69 100 06/07/17 12:18 108 8 112/64 (80) 98 Room Air 06/07/17 12:09 17 99 Room Air 06/07/17 11:55 97.6 128 16 111/59 (76) 100 Physical Exam GENERAL: WDWN pale adult white female sitting up in bed, comfortable, NAD SKIN: Pale. No rashes, ecchymoses or lesions. Cool and dry. HEAD: NC/AT EYES: PERRL. EOMI. No conjunctival injection or drainage. Conjunctival pallor noted ENT: MMM, OP without erythema, tonsillar swelling, or exudate. NECK: Supple, no lymphadenopathy. No JVD. CARDIOVASCULAR: NRRR. Normal S1/S2. No MRG RESPIRATORY: CTAB. No crackles or wheezes. GASTROINTESTINAL: Midline laparotomy scare. Abdomen soft, non-distended, mildly tender in periumbilical region where hernia was repaired. No hepato- splenomegaly or palpable masses. MUSCULOSKELETAL: Extremities without clubbing, cyanosis, or edema. NEUROLOGICAL: Awake and alert. Cranial nerves II through XII grossly intact. Moves all extremities without difficulty. Normal speech. Laboratory Laboratory Tests Test 06/07/17 12:10 White Blood Count 10.8 Red Blood Count 2.42 Hemoglobin 6.4 Hematocrit 20.5 Mean Corpuscular Volume 84.9 Mean Corpuscular Hemoglobin 26.5 Mean Corpuscular Hemoglobin Concent 31.2 Red Cell Distribution Width 19.4 Platelet Count 213 Mean Platelet Volume 9.8 Neutrophils (%) (Auto) 80.2 Lymphocytes (%) (Auto) 4.6 Monocytes (%) (Auto) 5.7 Eosinophils (%) (Auto) 8.3 Basophils (%) (Auto) 1.2 Neutrophils # (Auto) 8.7 Lymphocytes # (Auto) 0.5 Monocytes # (Auto) 0.6 Eosinophils # (Auto) 0.9 Basophils # (Auto) 0.1 CBC Comment DIFF FINAL Differential Comment Prothrombin Time 10.7 Prothromb Time International Ratio 1.1 Activated Partial Thromboplast Time 26.1 Blood Urea Nitrogen 16 Creatinine 0.89 Random Glucose 380 Total Protein 6.2 Albumin 2.2 Calcium Level 8.1 Alkaline Phosphatase 341 Aspartate Amino Transf (AST/SGOT) 48 Alanine Aminotransferase (ALT/SGPT) 26 Total Bilirubin 0.6 Sodium Level 137 Potassium Level 4.1 Chloride Level 103 Carbon Dioxide Level 26.9 Anion Gap 7 Estimat Glomerular Filtration Rate 68 (Ankit Gabriel MD) Result Diagram: 06/07/17 1210 06/07/17 1210 Caprini VTE Risk Assessment Caprini VTE Risk Assessment: Mod/High Risk (score >= 2) VTE Pharm Contraindication: Active bleeding (Ankit Gabriel MD) Assessment and Plan Assessment and Plan 46 yo female with h/o GI cancer now in remission presenting with: (Ankit Gabriel MD) Attending Attestation THIS CASE WAS DISCUSSED WITH THE RESIDENT PHYSICIAN. I HAVE REVIEWED THE RECORD AND AGREE WITH THE ABOVE NOTE AND PLAN OF CARE WAS DISCUSSED. I HAVE AUTHORIZED THE ORDER FOR PLACEMENT IN OUT-PATIENT OBSERVATION STATUS. (Tanner Romero MD) Problem List: (1) Anemia ICD Codes: D64.9 - Anemia, unspecified Status: Acute Plan: Acute on chronic anemia, clinically stable - Transfuse 2 units packed red blood cells - Check posttransfusion hemoglobin and hematocrit; if improving appropriately patient can be discharged with outpatient follow-up (2) Essential hypertension ICD Codes: I10 - Essential (primary) hypertension Plan: Blood pressure stable Continue home losartan, HCTZ, metoprolol (3) Diabetes mellitus ICD Codes: E11.9 - Type 2 diabetes mellitus without complications Status: Chronic Plan: Check blood sugar before meals and at bedtime Diet diabetic Continue home metformin and sulfonylurea (4) Cirrhosis of liver ICD Codes: K74.60 - Unspecified cirrhosis of liver Plan: Minimally elevated AST and ALP Check liver function in the morning if patient remains hospitalized (5) Pulmonary embolism ICD Codes: I26.99 - Other pulmonary embolism without acute cor pulmonale Plan: Stable, has been on Eliquis for the last month and a half Hold Eliquis while in-house Advised patient to contact Dr. Hall (retort kiln burner) regarding when she should stop Eliquis in relation to her GI scope (6) FEN/PPX Plan: Fluids: PO only Elecs: Monitor and replete PRN Diet: 2200 ADA cons carb DVT: SCDs GI: Protonix drip while in house; further PPI therapy at discretion of outpatient GI physician (they are aware of patient's chronic anemia) Code status: FULL CODE dw Dr. Romero (Ankit Gabriel MD) Problem Qualifiers (1) Anemia: Qualified Codes: D50.0 - Iron deficiency anemia secondary to blood loss ( chronic) (2) Diabetes mellitus: Qualified Codes: E11.42 - Type 2 diabetes mellitus with diabetic polyneuropathy ; Z79.4 - ferry terminal agent (current) use of insulin Ankit Gabriel MD Jun 07, 2017 15:42 Tanner Romero MD Jun 07, 2017 21:10
[2017-06-07] MEDS ORDERED: BISACODYL 10 MG SUPP RECTAL PRN (15:45)
[2017-06-07] MEDS ORDERED: SODIUM CHLORIDE 0.9% FLUSH 10 ML FLUSH IV FLUSH PRN (15:45)
[2017-06-07] MEDS ORDERED: NALOXONE HCL 0.4 MG/ML AMP IV PUSH PRN (15:45)
[2017-06-07] MEDS ORDERED: LACTULOSE SYRUP 20 GM/30 ML CUP PO PRN (15:45)
[2017-06-07] MEDS ORDERED: MAGNESIUM HYDROXIDE SUSP 30 ML CUP PO PRN (15:45)
[2017-06-07] MEDS ORDERED: SENNOSIDES 8.6 MG TAB PO PRN (15:45)
--- NOTE | 2017-06-07 17:09 | HHI.FPPN ---
Subjective Remarks FM Attending Note: Patient seen and examined. S: Chart and all resident physician notes reviewed. In summary this is a 46 year old female who was admitted with an admission diagnosis of Anemia. This has been a recurrent problem since her diagnosis of gastric cancer. She has a h /o pulmonary emboli and has been on Eliquis. GI is planning an outpatient endoscopy next week. Patient her for transfusion x 2 units for symptomatic anemia (fatigue and SOB). Objective Vitals Vital Signs Date Time Temp Pulse Resp B/P (MAP) Pulse Ox O2 Delivery O2 Flow Rate FiO2 06/07/17 16:49 96.8 96 16 116/66 100 06/07/17 16:14 96.6 96 20 115/57 (76) 100 06/07/17 16:05 06/07/17 15:31 98.2 92 18 115/66 100 06/07/17 15:02 97.5 96 14 120/69 100 06/07/17 12:18 108 8 112/64 (80) 98 Room Air 06/07/17 12:09 17 99 Room Air 06/07/17 11:55 97.6 128 16 111/59 (76) 100 I/O 06/06/17 06/06/17 06/06/17 06/07/17 06/07/17 06/07/17 07:00 15:00 23:00 07:00 15:00 23:00 Intake Total 1000 ml 1916 ml Balance 1000 ml 1916 ml Intake IV Total 1000 ml Packed Cells 400 ml Blood Product IV Normal Saline Flush 1516 ml Result Diagram: 06/07/17 1210 06/07/17 1210 Other Results Item Value Date Time Total Bilirubin 0.6 MG/DL 06/07/17 1210 Aspartate Amino Transf (AST/SGOT) 48 U/L H 06/07/17 1210 Alanine Aminotransferase (ALT/SGPT) 26 U/L 06/07/17 1210 Alkaline Phosphatase 341 U/L H 06/07/17 1210 Total Protein 6.2 GM/DL L 06/07/17 1210 Albumin 2.2 GM/DL L 06/07/17 1210 Carcinoembryonic Antigen 2.9 NG/ML 04/05/17 1635 Imaging O. CONSTITUTIONAL/GEN: normally nourished, in NAD. EYES: conjunctiva normal, PERRLA, EOMI. LUNGS: respiratory effort is normal. CARDIOVASCULAR: RR . No significant edema. NEURO: No focal deficits. SKIN: color normal, no rashes noted. MUSC: back is normal in appearance. Extremities are normal in appearance. PSYCH/MENTAL STATUS: Alert and oriented x 3. A/P Problem List: (1) Anemia ICD Codes: D64.9 - Anemia, unspecified Status: Acute Plan: Acute on chronic anemia, clinically stable - Transfuse 2 units packed red blood cells - Check posttransfusion hemoglobin and hematocrit; if improving appropriately patient can be discharged with outpatient follow-up 06/07/17 Patient will contact cardiology office tomorrow regarding recommendations for holding Eliquis prior to GI endoscopy planned as an outpation. Problem Qualifiers (1) Anemia: Qualified Codes: D50.0 - Iron deficiency anemia secondary to blood loss ( chronic) Tanner Romero MD Jun 07, 2017 17:09
[2017-06-07] MEDS ORDERED: GABAPENTIN 300 MG CAP PO SCH (18:00)
[2017-06-07] MEDS ORDERED: metFORMIN HCL 500 MG TAB PO SCH (18:00)
[2017-06-07] MEDS ORDERED: glyBURIDE 2.5 MG TAB PO SCH (18:00)
[2017-06-07] MEDS ORDERED: FERROUS SULFATE 325 MG (65 MG ELEMENTAL IRON) TAB PO SCH (18:00)
[2017-06-07 20:43] LABS: HEMATOCRIT 23.9 % (35.0-46.0); REVIEW FLAG FINAL
[2017-06-07] MEDS ORDERED: SODIUM CHLORIDE 0.9% FLUSH 10 ML FLUSH IV FLUSH SCH (21:00)
[2017-06-07] MEDS ORDERED: DOCUSATE SODIUM 50 MG/SENNA 8.6 MG TAB PO SCH (21:00)
[2017-06-07] MEDS ORDERED: INSULIN DETEMIR 100 UNITS/ML VIAL SQ SCH (21:00)
[2017-06-07] MEDS ORDERED: GLYBURIDE METFORMIN PO SCH (21:00)
[2017-06-07] MEDS ORDERED: PANT40TA3 PO (21:31)
--- NOTE | 2017-06-07 21:34 | HHI.DCPOC ---
Discharge Care Plan Diagnosis: (1) Anemia (2) GI bleed (3) Pulmonary embolism Goals to Promote Your Health * To prevent worsening of your condition and complications * To maintain your health at the optimal level Directions to Meet Your Goals Contact your Cpc to ask about how long to hold off on Eliquis prior to GI procedure Contact your GI physician's office to schedule your GI procedure Obtain your repeat blood work as ordered. Results will be faxed to your Oncologist Return to the ER or see your doctor if you develop worsened shortness of breath, sudden bleeding, or fainting Change positions slowly (allow a minute between lying and sitting, between sitting and standing) Take your medications as prescribed Follow your dietary instruction Follow activity as directed Keep your appointments as scheduled Take your immunizations and boosters as scheduled If your symptoms worsen call your PCP, if no PCP go to Urgent Care Center or Emergency Room Smoking is Dangerous to Your Health. Avoid second hand smoke Call the 24-hour hour crisis hotline for domestic abuse at Ankit Gabriel MD Jun 07, 2017 21:33
--- NOTE | 2017-06-07 21:40 | HHI.PR ---
Addendum to Inpatient Note Addendum Reason: Additional Documentation Additional Information Post-transfusion hemoglobin improved to 7.6. Only 1.2 point increase after 2 units of blood, however patient also received over a liter of IV fluids so this is actually an appropriate response. Still asymptomatic. Stable for discharge with repeat H/H to be done tomorrow with results faxed to oncologist and myself. Plan of care as documented in discharge plan. Ankit Gabriel MD Jun 07, 2017 21:40
[2017-06-08] MEDS ORDERED: HYDROCHLOROTHIAZIDE 12.5 MG CAP PO SCH (09:00)
[2017-06-08] MEDS ORDERED: METOPROLOL SUCCINATE 25 MG EXTENDED RELEASE TAB PO SCH (09:00)
[2017-06-08] MEDS ORDERED: METOPROLOL HYDROCHLOROTHIAZIDE PO SCH (09:00)
[2017-06-08] MEDS ORDERED: LOSARTAN 50 MG TAB PO SCH (09:00)
== END 2017-06-07 22:08 | disposition home or self-care (01) ==
LOC: NEPE 11:53 → NEDA 14:55 → NEPHCDU 15:50
PROVIDERS: ADMIT Family Medicine; ATTEND Family Medicine
DX: D50.0 Iron deficiency anemia secondary to blood loss (chronic) (principal); R00.0 Tachycardia, unspecified; R74.8 Abnormal levels of other serum enzymes; K92.1 Melena; I10 Essential (primary) hypertension; E11.42 Type 2 diabetes mellitus with diabetic polyneuropathy; K74.60 Unspecified cirrhosis of liver; F17.210 Nicotine dependence, cigarettes, uncomplicated; Z79.4 Long term (current) use of insulin; Z92.3 Personal history of irradiation; Z92.21 Personal history of antineoplastic chemotherapy; Z79.899 Other long term (current) drug therapy; Z79.01 Long term (current) use of anticoagulants; Z85.028 Personal history of other malignant neoplasm of stomach; Z86.711 Personal history of pulmonary embolism
CPT/HCPCS: 36430; 80053; 82948; 85014; 85018; 85025; 85610; 85730; 86850; 86900; 86901; 86920; 96361; 96365; 96366; 99285; C9113; G0378; J7030; J7050; P9016

== ENCOUNTER 2017-08-08 00:17 | Inpatient (IN) | payer BC, OTHER ==
[~2017-08-08] VITALS: Ht 180.3 cm; Wt 86.4 kg
[2017-08-08] VITALS (9 sets, daily range): BP systolic 98–139; BP diastolic 57–78; PULSE 92–117; RESP 16–23; TEMP 97.2–98.5; O2SAT 96–100
[~2017-08-08 00:17] MED LIST changes: +APIX5TAB PO; -ESCI5TAB PO; +FERR325T18 PO; +METO-484 PO; +PANT40TA3 PO; -PROT40TA PO
[2017-08-08] MEDS ORDERED: SODIUM CHLOR 0.9% 1000 ML INJ 1,000 ML IV ONE (01:15)
--- NOTE | 2017-08-08 01:26 | PD ---
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 The patient is followed by Dr. Brown for her oncology care. She reports that she did receive chemotherapy, however her last PET scan showed no evidence of recurrent cancer, therefore she is off chemotherapy at this point. She reports that since being diagnosed she has had dark stools with anemia. Her anemia has been complicated by requiring anticoagulation for a pulmonary embolism. She reports that she last had a blood transfusion on June 08. She received 4 units of packed red blood cells in total. The patient reports that she had blood work done 2 weeks ago, however she never heard about the results. She reports that she has difficulty paying for her doctor's appointments as she has a large deductible. She has not made an appointment again with her oncologist. 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 She reports that she is supposed to undergo endoscopy again to evaluate for source of bleeding. She reports that in preparation for having the endoscopy she did discontinue her anticoagulation 2 weeks ago. She reports that over the last few days she has had increasing weakness, today she has had myalgias. She reports that she has had intermittent left-sided chest pain for the last 2 days. She reports feeling dizzy and lightheaded. She denies having any shortness of breath. She reports having intermittent abdominal pains in the area just above the umbilicus. She reports having a bitemporal headache today. Otherwise on review of systems, she denies having any known recent fevers, cough, congestion, neck pain, vomiting, diarrhea, urinary symptoms, or other neurologic symptoms. The patient's last menstrual cycle was a year ago. 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 Anemia: Yes Asthma: No Anxiety: Yes Depression: No Heart Rhythm Problems: No Cancer: Yes (gastric) Cardiovascular Problems: Yes (HTN) High Cholesterol: No Chemotherapy: Yes (FINISHED ) Chest Pain: No Congestive Heart Failure: No COPD: No Diabetes: Yes (metformin) Patient Takes Glucophage: Yes Diminished Hearing: No Endocrine: Yes Gastrointestinal Disorders: Yes (CANCER) Genitourinary: No Hepatitis: No Hiatal Hernia: Yes Hypertension: Yes Immune Disorder: No Inguinal Hernia: Yes (x 2) Musculoskeletal: No Neurologic: No Psychiatric: Yes Reproductive: No Respiratory: No Radiation Therapy: Yes (FINISHED ) Sleep Apnea: No Thyroid Disease: No Tetanus Vaccination: Unknown Influenza Vaccination: Yes ?: Not Menopausal: Yes Past Surgical History Narrative Surgical The patient's past surgical history is significant for cholecystectomy, gastrectomy, endoscopy, hernia repair, appendectomy. Abdominal Surgery: Yes (APPENDECTOMY/ X2 LIVER BIOPSIES) Appendectomy: Yes Cholecystectomy: Yes Pacemaker: No Other Surgery: Yes (2 ABD hernia surgeries, partial gastrectomy) Social History Alcohol Use: No Tobacco Use: Yes (/2 PPD) Substance Use: No Allergies-Medications (Allergen,Severity, Reaction): Coded Allergies: No Known Allergies (Verified , 10/11/16) Reported Meds & Prescriptions Reported Meds & Active Scripts Active Reported Ferrous Sulfate 325 Mg (65 Mg Iron) Tablet 325 Mg PO BIDPC Metoprolol-Hydrochlorothiazide 25-12.5 Mg Tab 1 Tab PO DAILY Glucovance (Glyburide-Metformin) 2.5-500 Mg Tab 1,000 Tab PO BID Cozaar (Losartan Potassium) 50 Mg Tab 50 Mg PO DAILY Gabapentin 600 Mg Tab 900 Mg PO TID Review of Systems Except as stated in HPI: all other systems reviewed are Neg General / Constitutional: No: Fever Eyes: No: Visual changes HENT: Positive: Headaches, Lightheadedness, No: Rhinorrhea, Congestion, Neck Stiffness, Neck Pain Cardiovascular: Positive: Chest Pain or Discomfort, Edema (Edema bilateral ankles and feet for the last 2 weeks.) Respiratory: No: Cough, Shortness of Breath Gastrointestinal: Positive: Abdominal Pain, No: Nausea, Vomiting, Diarrhea, Loss of Appetite Genitourinary: No: Dysuria Musculoskeletal: Positive: Myalgias, No: Pain Skin: No Rash Neurologic: Positive: Weakness (Generalized weakness), Dizziness, No: Focal Abnormalities, Change in Mentation, Slurred Speech, Sensory Disturbance Psychiatric: No: Depression Endocrine: No: Polydipsia Hematologic/Lymphatic: No: Easy Bruising Physical Exam Narrative General: The patient is a well-developed well-nourished female in no acute distress. Head and Neck exam: Head is normocephalic atraumatic. Eyes: EOMI, pupils are equal round and reactive to light. Nose: Midline septum with pink mucous membranes Mouth: Dentition unremarkable. Moist mucus membranes. Posterior oropharynx is not erythematous. No tonsillar hypertrophy. Uvula midline. Airway patent. Neck: No palpable lymphadenopathy. No nuchal rigidity. No thyromegaly. Cardiovascular: Sinus tachycardia in the 1 teens without murmurs, gallops, or rubs. No pulse deficit to the extremities on simultaneous auscultation and palpation of her radial artery. Lungs: Clear to auscultation bilaterally. No wheezes, rhonchi, or rales. Abdomen: Soft, without tenderness to palpation in all 4 quadrants of the abdomen. No guarding, rebound, or rigidity. Normal bowel sounds are audible. No tenderness on palpation of McBurney's point. Negative Landaverde sign. Extremities: No clubbing or cyanosis. The patient has 1+ pitting edema bilateral lower extremities. 2+ pulses in all 4 extremities. No calf tenderness on palpation. Back: No spinous process tenderness to palpation. No costovertebral angle tenderness to palpation. Neurologic Exam: Grossly nonfocal. Skin Exam: No rash noted. Intact skin that is warm and dry. RECTAL EXAM: No masses or tenderness, stool is dark brown. Hemoccult positive Data Data Last Documented VS Vital Signs Date Time Temp Pulse Resp B/P (MAP) Pulse Ox O2 Delivery O2 Flow Rate FiO2 08/08/17 02:51 92 18 126/69 (88) 100 Room Air 08/08/17 00:20 98.5 Orders Orders Electrocardiogram (08/08/17 01:02) Complete Blood Count With Diff (08/08/17 01:02) Comprehensive Metabolic Panel (08/08/17 01:02) Creatine Kinase (Cpk) (08/08/17 01:02) Ckmb (Isoenzyme) Profile (08/08/17 01:02) Troponin I (08/08/17 01:02) B-Type Natriuretic Peptide (08/08/17 01:02) Prothrombin Time / Inr (Pt) (08/08/17 01:02) Act Partial Throm Time (Ptt) (08/08/17 01:02) Lipase (2/20/18 01:02) Urinalysis - C+S If Indicated (08/08/17 01:02) Magnesium (Mg) (08/08/17 01:02) Thyroid Stimulating Hormone (08/08/17 01:02) Chest, Single Ap (08/08/17 01:02) Iv Access Insert/Monitor (08/08/17 01:02) Ecg Monitoring (08/08/17 01:02) Oximetry (08/08/17 01:02) Type And Screen (08/08/17 01:02) Ed Urine Pregnancytest Poc (08/08/17 01:02) Sodium Chlor 0.9% 1000 Ml Inj (Ns 1000 M (08/08/17 01:15) Sodium Chloride 0.9... W/Pantoprazole In (08/08/17 02:09) Sodium Chloride 0.9... W/Pantoprazole In (08/08/17 02:09) Urine Culture (08/08/17 01:40) Ceftriaxone Inj (Rocephin Inj) (08/08/17 02:30) Morphine Inj (Morphine Inj) (08/08/17 02:45) Ondansetron Inj (Zofran Inj) (08/08/17 02:45) Admit Order (Ed Use Only) (08/08/17 03:03) Labs Laboratory Tests Test 08/08/17 01:30 08/08/17 01:40 White Blood Count 5.6 TH/MM3 Red Blood Count 2.94 MIL/MM3 Hemoglobin 8.3 GM/DL Hematocrit 25.2 % Mean Corpuscular Volume 85.8 FL Mean Corpuscular Hemoglobin 28.1 PG Mean Corpuscular Hemoglobin Concent 32.8 % Red Cell Distribution Width 21.8 % Platelet Count 212 TH/MM3 Mean Platelet Volume 8.3 FL Neutrophils (%) (Auto) 75.5 % Lymphocytes (%) (Auto) 9.3 % Monocytes (%) (Auto) 8.6 % Eosinophils (%) (Auto) 5.8 % Basophils (%) (Auto) 0.8 % Neutrophils # (Auto) 4.2 TH/MM3 Lymphocytes # (Auto) 0.5 TH/MM3 Monocytes # (Auto) 0.5 TH/MM3 Eosinophils # (Auto) 0.3 TH/MM3 Basophils # (Auto) 0.0 TH/MM3 CBC Comment DIFF FINAL Differential Comment Prothrombin Time 10.5 SEC Prothromb Time International Ratio 1.0 RATIO Activated Partial Thromboplast Time 27.3 SEC Blood Urea Nitrogen 12 MG/DL Creatinine 0.81 MG/DL Random Glucose 314 MG/DL Total Protein 7.0 GM/DL Albumin 2.5 GM/DL Calcium Level 8.3 MG/DL Magnesium Level 1.9 MG/DL Alkaline Phosphatase 373 U/L Aspartate Amino Transf (AST/SGOT) 39 U/L Alanine Aminotransferase (ALT/SGPT) 21 U/L Total Bilirubin 0.4 MG/DL Sodium Level 137 MEQ/L Potassium Level 4.1 MEQ/L Chloride Level 103 MEQ/L Carbon Dioxide Level 27.1 MEQ/L Anion Gap 7 MEQ/L Estimat Glomerular Filtration Rate 76 ML/MIN Total Creatine Kinase 26 U/L Troponin I LESS THAN 0.02 NG/ML B-Type Natriuretic Peptide 5 PG/ML Lipase 39 U/L Thyroid Stimulating Hormone 3rd Gen 2.100 uIU/ML Urine Color YELLOW Urine Turbidity HAZY Urine pH 5.5 Urine Specific [place] 1.029 Urine Protein 30 mg/dL Urine Glucose (UA) 1000 mg/dL Urine Ketones TRACE mg/dL Urine Occult Blood NEG Urine Nitrite POS Urine Bilirubin NEG Urine Urobilinogen 2.0 MG/DL Urine Leukocyte Esterase TRACE Urine RBC 1 /hpf Urine WBC 6 /hpf Urine Squamous Epithelial Cells 3 /hpf Urine Bacteria MOD /hpf Urine Hyaline Casts 8 /lpf Urine Mucus MANY /lpf Microscopic Urinalysis Comment CULTURE INDICATED MDM Medical Decision Making Medical Screen Exam Complete: Yes Emergency Medical Condition: Yes Medical Record Reviewed: Yes Interpretation(s) Last Impressions Chest X-Ray 08/08/17 0102 Signed Impressions: Service Date/Time: Tuesday, August 08, 2017 01:25 - CONCLUSION: No acute disease. Francisco Fan MD Lower Extremity Ultrasound 08/08/17 0000 Signed Impressions: Service Date/Time: Tuesday, August 08, 2017 08:20 - CONCLUSION: Negative for deep venous thrombosis bilateral lower extremity. Kleber Meeks MD CT Angiography 08/08/17 0000 Signed Impressions: Service Date/Time: Tuesday, August 08, 2017 04:19 - CONCLUSION: 1. Suboptimal opacification of pulmonary arteries with no evidence of pulmonary embolism. 2. Underlying pulmonary emphysema. 3. Small stable noncalcified pulmonary nodules. Francisco Fan MD Differential Diagnosis GI bleed related to adenocarcinoma, versus peptic ulcer disease, versus gastritis Narrative Course During the course of the patient's emergency department visit, the patient's history, examination, and differential diagnosis were reviewed with the patient. The patient was placed on a blacksmith apprentice with oximetry and frequent blood pressure monitoring. The patient had IV access obtained and blood work sent for analysis. The patient had an EKG done on arrival that shows a sinus tachycardia rate of 105, QRS duration 90 ms, QTC [address] segment elevation or depression. The patient was initially provided normal saline 1 L IV fluid bolus, Protonix 80 mg IV followed by a Protonix drip. The patient's laboratory studies were reviewed and remarkable for A white count of 5.6, hemoglobin 8.3, platelets 212 with 75.5 neutrophils, CMP is remarkable for a glucose of 314, calcium 8.3, magnesium 1.9, AST 39, alk phos 373. Initial set of cardiac enzymes are negative, BNP 5, lipase 39, TSH 2.1, PT PTT within normal, urinalysis shows 30 protein thousand glucose trace ketones positive nitrite trace leukocyte esterase 1 RBCs, 6 WBCs, moderate bacteria, culture indicated Radiology studies were reviewed and remarkable for chest x-ray that showed no acute cardiopulmonary disease, CTA was suboptimal, however no obvious PE was noted, ultrasound of the lower extremities revealed no evidence of DVT. The patient's results were discussed with the patient, including the plan of care. I explained that further testing and/ or monitoring is indicated based on the patient's history, examination, and/ or laboratory findings. Therefore, I recommended admission for additional evaluation. The patient expressed understanding and was agreeable with this plan. The patient was admitted to the hospital in guarded condition and sent to a bed under the care of the [facility]. [facility] Point of Care Internal Pos. & Neg. Controls: Passed Fecal Specimen Occult Blood: Positive Diagnosis Primary Impression: GI bleed Qualified Codes: K92.2 - Gastrointestinal hemorrhage, unspecified Admitting Information Admitting Physician Requests: Admit Allyson Robertson MD Aug 08, 2017 01:26
--- NOTE | 2017-08-08 01:46 | RADRPT ---
EXAM DATE/TIME: 08/08/2017 01:25 [facility] COMPARISON: CHEST SINGLE AP, June 08, 2016, 5:26. INDICATIONS : Shortness of breath. MEDICAL HISTORY : None. SURGICAL HISTORY : None. ENCOUNTER: Initial ACUITY: 1 day PAIN SCORE: 0/10 LOCATION: Bilateral chest FINDINGS: A single view of the chest demonstrates the lungs to be symmetrically aerated without evidence of mas s, infiltrate or effusion. The cardiomediastinal contours are unremarkable. Osseous structures are intact. CONCLUSION: No acute disease. Francisco Fan MD on August 08, 2017 at 1:45 Board Certified Radiologist. This report was verified electronically.
[2017-08-08 01:59] LABS: AUTOMATED NEUTROPHIL # 4.2 TH/MM3 (1.8-7.7); BASOPHIL % 0.8 % (0.0-2.0); EOSINOPHIL # 0.3 TH/MM3 (0-0.4); EOSINOPHIL % 5.8 % (0.0-4.0); HEMATOCRIT 25.2 % (35.0-46.0); HEMOGLOBIN 8.3 GM/DL (11.6-15.3); LYMPH % 9.3 % (9.0-44.0); LYMPHOCYTE # 0.5 TH/MM3 (1.0-4.8); MEAN CELL VOLUME 85.8 FL (80.0-100.0); MEAN CORPUSCULAR HEMOGLOBIN 28.1 PG (27.0-34.0); MEAN CORPUSCULAR HGB CONC 32.8 % (32.0-36.0); MEAN PLATELET VOLUME 8.3 FL (7.0-11.0); MONO % 8.6 % (0.0-8.0); MONOCYTE # 0.5 TH/MM3 (0-0.9); NEUT % 75.5 % (16.0-70.0); PLATELET COUNT 212 TH/MM3 (150-450); RED BLOOD COUNT 2.94 MIL/MM3 (4.00-5.30); RED CELL DISTRIBUTION WIDTH 21.8 % (11.6-17.2); WHITE BLOOD COUNT 5.6 TH/MM3 (4.0-11.0)
[2017-08-08 02:02] LABS: BACTERIA, URINE MOD /hpf; BILIRUBIN, URINE NEG (NEG); BLOOD, URINE NEG (NEG); GLUCOSE,URINE 1000 mg/dL (NEG); HYALINE CAST, URINE 8 /lpf (RARE); KETONE, URINE TRACE mg/dL (NEG); MUCUS URINE MANY /lpf (OCC); NITRITE,URINE POS (NEG); PH, URINE 5.5 (5.0-8.5); SQUAMOUS EPITHELIAL CELL URINE 3 /hpf (0-5); URINE COLOR YELLOW (YELLW/STRAW); URINE LEUKOCYTE ESTERASE TRACE (NEG)
[2017-08-08] MEDS ORDERED: PANTOPRAZOLE INJ 80 MG in SODIUM CHLORIDE 0.9% INJ 35 ML IV ONE (02:09)
[2017-08-08 02:13] LABS: PROTHROMBIN TIME - PATIENT 10.5 SEC (9.8-11.6)
[2017-08-08 02:23] LABS: ALBUMIN 2.5 GM/DL (3.4-5.0); ALT (GPT) 21 U/L (10-53); AST (GOT) 39 U/L (15-37); BICARBONATE 27.1 MEQ/L (21.0-32.0); BLOOD UREA NITROGEN 12 MG/DL (7-18); CALCIUM 8.3 MG/DL (8.5-10.1); CHLORIDE 103 MEQ/L (98-107); CREATININE 0.81 MG/DL (0.50-1.00); GLOMERULAR FILTRATION RATE 76 ML/MIN (>89); GLUCOSE,RANDOM 314 MG/DL (74-106); MAGNESIUM 1.9 MG/DL (1.5-2.5); SODIUM (NA) 137 MEQ/L (136-145)
[2017-08-08] MEDS ORDERED: cefTRIAXone INJ 1,000 MG in SODIUM CHLORIDE 0.9% INJ 100 ML IV ONE (02:30)
[2017-08-08 02:33] LABS: ALKALINE PHOSPHATASE 373 U/L (45-117); TOTAL BILIRUBIN ADULT 0.4 MG/DL (0.2-1.0); TROPONIN I LESS THAN 0.02 NG/ML (0.02-0.05)
[2017-08-08] MEDS ORDERED: ONDANSETRON HCL 4 MG/2 ML VIAL IV PUSH ONE (02:45)
[2017-08-08] MEDS ORDERED: MORPHINE SULFATE 4 MG/ML INJ IV PUSH ONE (02:45)
[2017-08-08] MEDS ORDERED: SODIUM CHLORIDE 0.9% FLUSH 10 ML FLUSH IV FLUSH PRN (03:15)
[2017-08-08] MEDS ORDERED: LORazepam 2 MG/ML VIAL IV PUSH ONE (03:15)
[2017-08-08] MEDS ORDERED: DEXTROSE 50% IN WATER 50 ML VIAL(D50) IV PUSH PRN (03:30)
[2017-08-08] MEDS ORDERED: GLUCAGON 1 MG/ML VIAL OTHER PRN (03:30)
[2017-08-08] MEDS: PANTOPRAZOLE INJ 80 MG in SODIUM CHLORIDE 0.9% INJ 100 ML IV SCH ×2 (03:40→13:47)
--- NOTE | 2017-08-08 04:12 | HHI.HP ---
[facility] Floyd De Los Santos MD Admission Diagnosis GI Bleed Diagnoses: (1) Anemia (2) GI bleed (3) Atypical chest pain (4) Diabetes mellitus Chief Complaint: Dizziness, chest pain, [place] Travel History International Travel<30 Days: No Contact w/Intl Traveler <30 Da: No Traveled to Known Affected Are: No History of Present Illness Mrs. Nichloson is a 46 year-old female with a history of poorly differentiated gastric adenocarcinoma with extensive lymph node involvement, GI bleeding, PE - placed on Eliquis but has been of since the of June, tobacco abuse, anemia, type 2 diabetes mellitus, hypertension, and cirrhosis who presented to the ER on 08/08/17 c/o dizziness and weakness. The patient is seen in the ER. She is complaining of severe dizziness that has worsened over the past few weeks and is now continuous rather than intermittent as it had been in March. She states that she's been feeling weak and dizzy in general since completing treatment for her cancer. She is s/p adjuvant radiation and chemotherapy with a negative PET scan per Dr. Rollins's progress note dated 06/14/17. That was the date of her last follow up with him. She reports dark stools and they were Hemoccult positive in the ED. H&H is 8.3/ 25.2. She was 7.6/23.9 on 06/07/17 - that is the most recent result available in EMR. She had 4 blood transfusions during May. UA is consistent with possible UTI - culture is pending. Additionally, she reports that saw Dr. Boyer as an outpatient and was diagnosed with PE in March. She reports being off Eliquis since the of June in preparation for an endoscopy. However, due to insurance reasons, she was unable to follow up for the procedure and has not resumed anticoagulation. She reports that she experiences dyspnea on exertion resulting in sedentary activity level. She is tachycardic on heart monitor and is also c/o chest pain to the left chest area described as a cramp lasting for 15 minutes earlier on the . It resolved spontaneously and has not recurred. Review of Systems Except as stated in HPI: all other systems reviewed are Neg Past Family Social History Past Medical History Pulmonary Embolism - has not been taking Eliquis since mid - PE diagnosed in March according to the patient Past Surgical History Subtotal gastrectomy with aston en y and cholecystectomy - Dr. Aguirre Right and left breast mass bx in May - path showed cyst 05/24/17 Liver cirrhosis per liver biopsy - 05/24/17 Endoscopy Inguinal hernia Appendectomy . Reported Medications Reported Meds & Active Scripts Active Reported Ferrous Sulfate 325 Mg (65 Mg Iron) Tablet 325 Mg PO BIDPC Metoprolol-Hydrochlorothiazide 25-12.5 Mg Tab 1 Tab PO DAILY Glucovance (Glyburide-Metformin) 2.5-500 Mg Tab 1,000 Tab PO BID Cozaar (Losartan Potassium) 50 Mg Tab 50 Mg PO DAILY Gabapentin 600 Mg Tab 900 Mg PO TID . Allergies: Coded Allergies: No Known Allergies (Verified , 10/11/16) Family History Mother uterine cancer Father with CVA Aunts on dad's side with breast and ovarian cancer has 2 sons, 1 daughter - all alive and well . Social History Tobacco: smokes < 1 PPD (has 20 year history of smoking 1 PPD) Alcohol: denies Illicit Drugs: denies . Physical Exam Vital Signs Vital Signs Date Time Temp Pulse Resp B/P (MAP) Pulse Ox O2 Delivery O2 Flow Rate FiO2 08/08/17 03:44 92 18 128/67 (87) 100 Room Air 08/08/17 02:51 92 18 126/69 (88) 100 Room Air 08/08/17 01:25 Room Air 08/08/17 01:24 104 18 131/71 (91) 100 Room Air 08/08/17 00:20 98.5 117 18 115/66 (82) 100 Physical Exam GENERAL: Pale, frail appearing female patient. INTEGUMENTARY: Warm and dry. Pale. HEENT: Normocephalic. Atraumatic.No scleral icterus - without injection or drainage. Mucosa dry, pale. NECK: Supple, trachea midline. No JVD. CARDIOVASCULAR: Tachycardic rate and regular rhythm without murmurs, gallops, or rubs. left lower extremity with 1+ pitting edema; right lower extremity with trace edema. RESPIRATORY: Breath sounds equal bilaterally. No accessory muscle use. GASTROINTESTINAL: Normally active bowel sounds. Abdomen soft, non-tender, nondistended. MUSCULOSKELETAL: No pain with palpation along anterior left chest wall. Moves extremities equally. NEUROLOGIC: Alert and oriented with normal speech. PSYCHIATRIC: Patient somewhat anxious appearing but not in acute distress. Laboratory Laboratory Tests Test 08/08/17 01:30 08/08/17 01:40 White Blood Count 5.6 Red Blood Count 2.94 Hemoglobin 8.3 Hematocrit 25.2 Mean Corpuscular Volume 85.8 Mean Corpuscular Hemoglobin 28.1 Mean Corpuscular Hemoglobin Concent 32.8 Red Cell Distribution Width 21.8 Platelet Count 212 Mean Platelet Volume 8.3 Neutrophils (%) (Auto) 75.5 Lymphocytes (%) (Auto) 9.3 Monocytes (%) (Auto) 8.6 Eosinophils (%) (Auto) 5.8 Basophils (%) (Auto) 0.8 Neutrophils # (Auto) 4.2 Lymphocytes # (Auto) 0.5 Monocytes # (Auto) 0.5 Eosinophils # (Auto) 0.3 Basophils # (Auto) 0.0 CBC Comment DIFF FINAL Differential Comment Prothrombin Time 10.5 Prothromb Time International Ratio 1.0 Activated Partial Thromboplast Time 27.3 Blood Urea Nitrogen 12 Creatinine 0.81 Random Glucose 314 Total Protein 7.0 Albumin 2.5 Calcium Level 8.3 Magnesium Level 1.9 Alkaline Phosphatase 373 Aspartate Amino Transf (AST/SGOT) 39 Alanine Aminotransferase (ALT/SGPT) 21 Total Bilirubin 0.4 Sodium Level 137 Potassium Level 4.1 Chloride Level 103 Carbon Dioxide Level 27.1 Anion Gap 7 Estimat Glomerular Filtration Rate 76 Total Creatine Kinase 26 Troponin I LESS THAN 0.02 B-Type Natriuretic Peptide 5 Lipase 39 Thyroid Stimulating Hormone 3rd Gen 2.100 Urine Color YELLOW Urine Turbidity HAZY Urine pH 5.5 Urine Specific [place] 1.029 Urine Protein 30 Urine Glucose (UA) 1000 Urine Ketones TRACE Urine Occult Blood NEG Urine Nitrite POS Urine Bilirubin NEG Urine Urobilinogen 2.0 Urine Leukocyte Esterase TRACE Urine RBC 1 Urine WBC 6 Urine Squamous Epithelial Cells 3 Urine Bacteria MOD Urine Hyaline Casts 8 Urine Mucus MANY Microscopic Urinalysis Comment CULTURE INDICATED Date/Time Source Procedure Growth Status 08/08/17 01:40 Urine Clean Catch Urine Culture Pending Received Result Diagram: 08/08/[id number]/[id number] Imaging Last Impressions Chest X-Ray 08/08/17101 Signed Impressions: Service Date/Time: Tuesday, August 08, 2017 01:25 - CONCLUSION: No acute disease. Francisco Fan MD . Cari VTE Risk Assessment Cari VTE Risk Assessment: Mod/High Risk (score >= 2) Caprini Risk Assessment Model Point Value = 1 Point Value = 2 Point Value = 3 Point Value = 5 Age 41-60 Minor surgery BMI > 25 kg/m2 Swollen legs Varicose veins or History of unexplained or recurrent spontaneous Oral contraceptives or hormone replacement Sepsis (< 1 month) Serious lung disease, including pneumonia (< 1 month) Abnormal pulmonary function Acute myocardial infarction Congestive heart failure (< 1 month) History of inflammatory bowel disease Medical patient at bed rest Age 61-74 Arthroscopic surgery Major open surgery (> 45 min) Laparoscopic surgery (> 45 min) Malignancy Confined to bed (> 72 hours) Immobilizing plaster cast Central venous access Age >= 75 History of VTE Family history of VTE Factor V Leiden Prothrombin [id number] Lupus anticoagulant Anticardiolipin antibodies Elevated serum homocysteine Heparin-induced thrombocytopenia Other congenital or acquired thrombophilia Stroke (< 1 month) Elective arthroplasty Hip, pelvis, or leg fracture Acute spinal cord injury (< 1 month) Prophylaxis Regimen Total Risk Factor Score Risk Level Prophylaxis Regimen 0-1 Low Early ambulation 2 Moderate Order ONE of the following: *Sequential Compression Device (SCD) *Heparin 5000 units SQ BID 3-4 Higher Order ONE of the following medications: *Heparin 5000 units SQ TID *Enoxaparin/Lovenox 40 mg SQ daily (WT < 150 kg, CrCl > 30 mL/min) *Enoxaparin/Lovenox 30 mg SQ daily (WT < 150 kg, CrCl > 10-29 mL/min) *Enoxaparin/Lovenox 30 mg SQ BID (WT < 150 kg, CrCl > 30 mL/min) AND/OR *Sequential Compression Device (SCD) 5 or more Highest Order ONE of the following medications: *Heparin 5000 units SQ TID (Preferred with Epidurals) *Enoxaparin/Lovenox 40 mg SQ daily (WT < 150 kg, CrCl > 30 mL/min) *Enoxaparin/Lovenox 30 mg SQ daily (WT < 150 kg, CrCl > 10-29 mL/min) *Enoxaparin/Lovenox 30 mg SQ BID (WT < 150 kg, CrCl > 30 mL/min) AND *Sequential Compression Device (SCD) Assessment and Plan Problem List: (1) Anemia ICD Code: D64.9 - Anemia, unspecified Status: Acute (2) GI bleed ICD Code: K92.2 - Gastrointestinal hemorrhage, unspecified Status: Acute (3) Atypical chest pain ICD Code: R07.89 - Other chest pain (4) Diabetes mellitus ICD Code: E11.9 - Type 2 diabetes mellitus without complications Status: Chronic (5) UTI (urinary tract infection) ICD Code: N39.0 - Urinary tract infection, site not specified Assessment and Plan Mrs. 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 GI bleed Anemia Dizziness History of poorly differentiated gastric cancer - close monitoring of H&H q6h - consult gastroenterology - assistance appreciated - NPO except medications - Monitor orthostatic vital signs - consider consulting Dr. Rollins, patient's oncologist Atypical Chest pain - serial EKGs and cardiac enzymes to r/o ACS - CT angiogram to r/o PE - bilateral LE doppler to r/o DVT UTI - UA c/w UTI - Ceftriaxone 1 gm IV q24h - await urine culture results and adjust treatment depending upon the results Type 2 Diabetes Mellitus - accuchecks ac and hs with low dose NovoLog sliding scale coverage - holding home medications for now - PRN hypoglycemia treatment protocol ordered - monitor trends in blood glucose and adjust treatments accordingly Hypertension - resume home HCTZ, Metoprolol, and Losartan - monitor trends in blood pressure and adjust treatment as needed DVT prophylaxis - on hold pending imaging for active DVT/PE . Discussed Condition With Patient and Dr. Alejandra . Problem Qualifiers (1) Anemia: Qualified Codes: D64.9 - Anemia, unspecified (2) GI bleed: Qualified Codes: K92.2 - Gastrointestinal hemorrhage, unspecified Cat Ortiz Aug 08, 2017 04:12
[2017-08-08] MEDS ORDERED: IOHEXOL 350 MG/ML 10 ML VIAL (for RAD DIAG) IVCONTRAST ONE (04:29)
--- NOTE | 2017-08-08 05:05 | RADRPT ---
EXAM DATE/TIME: 08/08/2017 04:19 [facility] COMPARISON: CT PULMONARY ANGIOGRAM, October 11, 2016, 2:39. INDICATIONS : Dizziness. IV CONTRAST: 75 cc Omnipaque 350 (iohexol) IV RADIATION DOSE: 14.09 CTDIvol (mGy) MEDICAL HISTORY : Hernia, hiatal. Hypertension. SURGICAL HISTORY : Appendectomy. Cholecystectomy. ENCOUNTER: Initial ACUITY: 1 day PAIN SCALE: 0/10 LOCATION: Bilateral chest TECHNIQUE: Volumetric scanning of the chest was performed using a pulmonary embolism protocol MIP images were re constructed. Using automated exposure control and adjustment of the mA and/or kV according to patien t size, radiation dose was kept as low as reasonably achievable to obtain optimal diagnostic quality images. DICOM format image data is available electronically for review and comparison. Follow-up recommendations for detected pulmonary nodules are based at a minimum on nodule size and pa tient risk factors according to Fleischner Society Guidelines. FINDINGS: PULMONARY ARTERIES: There is suboptimal opacification of the pulmonary arteries limiting the sensitivity of the exam. No filling defects are seen in the pulmonary arteries through the segmental level. LUNGS: There is no consolidation or pneumothorax . No concerning pulmonary nodule is visualized. There are 2 small stable noncalcified nodules in the right middle lobe. There is underlying emphysema. PLEURAE: There is no pleural thickening or pleural effusion. MEDIASTINUM: There is good visualization of the great vessels of the middle mediastinum. No evidence of mediastin al or hilar adenopathy/mass. MUSCULOSKELETAL: Within normal limits for patient age. MISCELLANEOUS: The visualized upper abdominal organs demonstrate no acute abnormality. CONCLUSION: 1. Suboptimal opacification of pulmonary arteries with no evidence of pulmonary embolism. 2. Underlying pulmonary emphysema. 3. Small stable noncalcified pulmonary nodules. Francisco Fan MD on August 08, 2017 at 5:01 Board Certified Radiologist. This report was verified electronically.
[2017-08-08] MEDS: INSULIN ASPART SUPPLEMENTAL SCALE SQ SCH ×2 (08:00→12:00)
[2017-08-08] MEDS ORDERED: LOSARTAN 50 MG TAB PO SCH (09:00)
[2017-08-08] MEDS ORDERED: METOPROLOL TARTRATE 25 MG TAB PO SCH (09:00)
[2017-08-08] MEDS ORDERED: cefTRIAXone INJ 1,000 MG in SODIUM CHLORIDE 0.9% INJ 100 ML IV SCH (09:00)
[2017-08-08] MEDS ORDERED: HYDROCHLOROTHIAZIDE 12.5 MG CAP PO SCH (09:00)
[2017-08-08] MEDS ORDERED: SODIUM CHLORIDE 0.9% FLUSH 10 ML FLUSH IV FLUSH SCH (09:00)
[2017-08-08] MEDS: GABAPENTIN 300 MG CAP PO SCH ×2 (09:08→13:00)
--- NOTE | 2017-08-08 09:27 | RADRPT ---
EXAM DATE/TIME: 08/08/2017 08:20 [facility] COMPARISON: No previous studies available for comparison. INDICATIONS : Bilateral lower extremity edema. MEDICAL HISTORY : Hypertension. Hiatal hernia. Diabetes. Gastric cancer. SURGICAL HISTORY : Cholecystectomy.Appendectomy. Hernia repair. Partial gastrectomy. ENCOUNTER: Initial ACUITY: 1 day PAIN SCORE: 0/10 LOCATION: Bilateral legs. TECHNIQUE: Venous ultrasound of the left and right leg was performed from the inguinal ligament to the proximal calf. Real-time, color Doppler and spectral tracing, compression and augmentation techniques were us ed. FINDINGS: RIGHT LEG: There is normal compressibility of the deep venous system from the inguinal region to the proximal ca lf. No echogenic clot is seen in the lumen of the common femoral, femoral, popliteal, and posterior tibial veins. There is a normal response of the venous system to proximal and distal augmentation an d respiration. LEFT LEG: There is normal compressibility of the deep venous system from the inguinal region to the proximal ca lf. No echogenic clot is seen in the lumen of the common femoral, femoral, popliteal, and posterior tibial veins. There is a normal response of the venous system to proximal and distal augmentation an d respiration. CONCLUSION: Negative for deep venous thrombosis bilateral lower extremity. Kleber Meeks MD on August 08, 2017 at 9:24 Board Certified Radiologist. This report was verified electronically.
[2017-08-08 10:25] LABS: HEMATOCRIT 22.7 % (35.0-46.0); HEMOGLOBIN 7.5 GM/DL (11.6-15.3)
[2017-08-08 10:36] LABS: TROPONIN I LESS THAN 0.02 NG/ML (0.02-0.05)
--- NOTE | 2017-08-08 10:59 | PD.CONS ---
HPI History of Present Illness This is a 46 year old female with hx stage 3 gastric adenocarcinoma s/p surgery and radiation and chemo, GIB, PE formerly on eliquis who presented with anemia and hx black tarry stool for last 4-5 months. She admits chornic abd discomfort , umbilical and epigastric region. She was diagnosed with gastric cancer last year, had subtotal gastrectomy, aston n y bypass and cholecystectomy 09/2016. She had EGD 10/11/16 found reflux esohpagitis, food residue obscuring complete eval, gastritis, duodenal ulcer, partial gastric outlet obstruction. She s/p radiation and chemo with negative PET scan. Follows with Dr Rollins. She was on eliquis for PE but has not had any since June. She denies manuel blood in stool, n/v. (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) PFSH Past Medical History Pulmonary Embolism - has not been taking Eliquis since mid-June - PE diagnosed in March according to the patient DM HTN stage 3 gastric adenocarcinoma Past Surgical History Subtotal gastrectomy with aston en y and cholecystectomy - Dr. Aguirre Right and left breast mass bx in May - path showed cyst 05/24/17 Liver cirrhosis per liver biopsy - 05/24/17 Endoscopy Inguinal hernia Appendectomy . (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) Coded Allergies: No Known Allergies (Verified , 10/11/16) Family History Mother uterine cancer Father with CVA Aunts on dad's side with breast and ovarian cancer has 2 sons, 1 daughter - all alive and well . Social History Tobacco: smokes < 1 PPD (has 20 year history of smoking 1 PPD) Alcohol: denies Illicit Drugs: denies . (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) Review of Systems Constitutional: COMPLAINS OF: Fatigue, DENIES: Fever Eyes: DENIES: Blurred vision Ears, nose, mouth, throat: DENIES: Hearing loss Respiratory: DENIES: Cough Cardiovascular: DENIES: Chest pain Gastrointestinal: COMPLAINS OF: Abdominal pain, Black stools, DENIES: Bloody stools, Diarrhea, Nausea, Vomiting Genitourinary: DENIES: Hematuria Musculoskeletal: DENIES: Joint Swelling Integumentary: DENIES: Abnormal pigmentation Hematologic/lymphatic: DENIES: Bruising Immunologic/allergic: DENIES: Eczema Neurologic: DENIES: Abnormal gait Psychiatric: DENIES: Confusion (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) GI Exam Vitals I&O Vital Signs Date Time Temp Pulse Resp B/P (MAP) Pulse Ox O2 Delivery O2 Flow Rate FiO2 08/08/17 08:00 98.0 93 23 98/57 (71) 96 08/08/17 05:45 97.2 95 16 125/66 (85) 98 08/08/17 05:07 91 18 139/78 (98) 99 08/08/17 03:44 92 18 128/67 (87) 100 Room Air 08/08/17 02:51 92 18 126/69 (88) 100 Room Air 08/08/17 01:25 Room Air 08/08/17 01:24 104 18 131/71 (91) 100 Room Air 08/08/17 00:20 98.5 117 18 115/66 (82) 100 I/O 08/07/17 08/07/17 08/07/17 08/08/17 08/08/17 08/08/17 07:00 15:00 23:00 07:00 15:00 23:00 Intake Total 1135 ml Balance 1135 ml Intake IV Total 1135 ml # Voids 1 Imaging Last Impressions Chest X-Ray 08/08/17 0102 Signed Impressions: Service Date/Time: Tuesday, August 08, 2017 01:25 - CONCLUSION: No acute disease. Francisco Fan MD Lower Extremity Ultrasound 08/08/17 0000 Signed Impressions: Service Date/Time: Tuesday, August 08, 2017 08:20 - CONCLUSION: Negative for deep venous thrombosis bilateral lower extremity. Kleber Meeks MD CT Angiography 08/08/17 0000 Signed Impressions: Service Date/Time: Tuesday, August 08, 2017 04:19 - CONCLUSION: 1. Suboptimal opacification of pulmonary arteries with no evidence of pulmonary embolism. 2. Underlying pulmonary emphysema. 3. Small stable noncalcified pulmonary nodules. Francisco Fan MD Laboratory Test 08/08/17 01:30 08/08/17 01:40 08/08/17 09:57 White Blood Count 5.6 TH/MM3 Red Blood Count 2.94 MIL/MM3 Hemoglobin 8.3 GM/DL 7.5 GM/DL Hematocrit 25.2 % 22.7 % Mean Corpuscular Volume 85.8 FL Mean Corpuscular Hemoglobin 28.1 PG Mean Corpuscular Hemoglobin Concent 32.8 % Red Cell Distribution Width 21.8 % Platelet Count 212 TH/MM3 Mean Platelet Volume 8.3 FL Neutrophils (%) (Auto) 75.5 % Lymphocytes (%) (Auto) 9.3 % Monocytes (%) (Auto) 8.6 % Eosinophils (%) (Auto) 5.8 % Basophils (%) (Auto) 0.8 % Neutrophils # (Auto) 4.2 TH/MM3 Lymphocytes # (Auto) 0.5 TH/MM3 Monocytes # (Auto) 0.5 TH/MM3 Eosinophils # (Auto) 0.3 TH/MM3 Basophils # (Auto) 0.0 TH/MM3 CBC Comment DIFF FINAL Differential Comment Prothrombin Time 10.5 SEC Prothromb Time International Ratio 1.0 RATIO Activated Partial Thromboplast Time 27.3 SEC Blood Urea Nitrogen 12 MG/DL Creatinine 0.81 MG/DL Random Glucose 314 MG/DL Total Protein 7.0 GM/DL Albumin 2.5 GM/DL Calcium Level 8.3 MG/DL Magnesium Level 1.9 MG/DL Alkaline Phosphatase 373 U/L Aspartate Amino Transf (AST/SGOT) 39 U/L Alanine Aminotransferase (ALT/SGPT) 21 U/L Total Bilirubin 0.4 MG/DL Sodium Level 137 MEQ/L Potassium Level 4.1 MEQ/L Chloride Level 103 MEQ/L Carbon Dioxide Level 27.1 MEQ/L Anion Gap 7 MEQ/L Estimat Glomerular Filtration Rate 76 ML/MIN Total Creatine Kinase 26 U/L Troponin I LESS THAN 0.02 NG/ML B-Type Natriuretic Peptide 5 PG/ML Lipase 39 U/L Thyroid Stimulating Hormone 3rd Gen 2.100 uIU/ML Urine Color YELLOW Urine Turbidity HAZY Urine pH 5.5 Urine Specific [place] 1.029 Urine Protein 30 mg/dL Urine Glucose (UA) 1000 mg/dL Urine Ketones TRACE mg/dL Urine Occult Blood NEG Urine Nitrite POS Urine Bilirubin NEG Urine Urobilinogen 2.0 MG/DL Urine Leukocyte Esterase TRACE Urine RBC 1 /hpf Urine WBC 6 /hpf Urine Squamous Epithelial Cells 3 /hpf Urine Bacteria MOD /hpf Urine Hyaline Casts 8 /lpf Urine Mucus MANY /lpf Microscopic Urinalysis Comment CULTURE INDICATED Date/Time Source Procedure Growth Status 08/08/17 01:40 Urine Clean Catch Urine Culture Pending Received Physical Examination HEENT: PERRL; normocephalic; atraumatic; no jaundice. CHEST: CTA CARDIAC: RRR ABDOMEN: Soft, nondistended, mild epigastric TTP; no hepatosplenomegaly; bowel sounds are present in all four quadrants. EXTREMITIES: No clubbing, cyanosis, or edema. SKIN: pale; no rash; no jaundice. SECOND WATCH SERGEANT: No focal deficits; alert and oriented times three. (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) Assessment and Plan Plan ASSESSMENT - anemia, black tarry stool - prob UGIB. normocytic, hgb 8.3. has had black stools for 4-5 months. last EGD 10/11/16 found reflux esohpagitis, food residue obscuring complete eval, gastritis, duodenal ulcer, partial gastric outlet obstruction - stage 3 adenocarcinoma - s/p subtotal gastrectomy with aston en y bypass, cholecystectomy, radiation, chemo, Negative PET scan per EMR, sees Dr Rollins PLAN - EGD today - obtain consent - NPO - monitor HH - transfuse as needed - further recs to follow pt seen by myself and Dr Ross and this note is on his behalf (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) Physician Comments Seen and examined with SELINA, egd planned for today. IV protonix. Monitor labs. Thank you (Gus Ross MD) 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 Aug 08, 2017 10:59 Gus Ross MD Aug 08, 2017 14:58
[2017-08-08] MEDS ORDERED: PROPOFOL 200 MG/20 ML AMP IV ONE (12:00)
--- NOTE | 2017-08-08 13:06 | GIPROC ---
[facility] [address] [facility]. [facility], [address] EGD PROCEDURE REPORT EXAM DATE: 08/08/2017 PATIENT NAME: Jesus Nicholson MR #: [id number] BIRTHDATE: 1970 ATTENDING: Gus Ross MD ORDER #: [id number] INVENTORY ACCOUNTANT: Erwin Quijano and Venus Arias STATUS: inpatient INDICATIONS: The patient is a 46 yr old female here for an EGD due to acute post hemorrhagic anemia PROCEDURE PERFORMED: EGD, diagnostic MEDICATIONS: Per Anesthesia and None. TOPICAL ANESTHETIC: CONSENT: The patient understands the risks and benefits of the procedure and understands that these risks include, but are not limited to: sedation, allergic reaction, infection, perforation and/or bleeding. Alternative means of evaluation and treatment include, among others: physical exam, x-rays, and/or surgical intervention. The patient elects to proceed with this endoscopic procedure. medical equipment was checked for proper function. Hand hygiene and appropriate measures for infection prevention was taken. After the risks, benefits and alternatives of the procedure were thoroughly explained, Informed consent was verified, confirmed and timeout was successfully executed by the treatment team. The patient was anesthetized with topical anesthesia and the Pentax [id number] endoscope was introduced through the mouth and advanced to the third portion of the duodenum. Retroflexed views revealed no abnormalities The gastroscope was then slowly withdrawn and removed. ESOPHAGUS: There was LA Class B esophagitis noted. STOMACH: A previous surgical anastomosis was found. There was a moderate amount of residual food seen at the gastro-duodenal anastamosis. Due to the residual food, complete mucosal examination could not be performed. DUODENUM: Severe duodenitis with bleeding was noted in the 3rd part of the duodenum. ADVERSE EVENTS: There were no complications. IMPRESSIONS: 1. There was LA Class B esophagitis noted 2. Previous surgical anastomosis was found 3. Food residue at the gastro-duodenal anastamosis 4. Duodenitis with bleeding was noted in the 3rd part of the duodenum 5. Retroflexed views revealed no abnormalities RECOMMENDATIONS: 1. Anti-reflux regimen 2. Continue PPI 3. Avoid NSAIDS PATIENT CONDITION: stable DISPOSITION: Inpatient REPEAT EXAM: Return 1 month EGD Gus Ross MD eSigned: Gus Ross MD 08/08/2017 1:06 PM cc: Floyd Urena M.D. PATIENT NAME: Jesus Nicholson MR#: [id number]
--- NOTE | 2017-08-08 15:34 | HHI.PR ---
Subjective Remarks up in chair- bacvk from EGD feels "slightly weak" d/w her lab results and EGD rrport symptom of dizziness - patient states- "am always dizzy" Objective Vitals Vital Signs Date Time Temp Pulse Resp B/P (MAP) Pulse Ox O2 Delivery O2 Flow Rate FiO2 08/08/17 13:19 97.9 92 18 89/58 (68) 95 08/08/17 12:00 98.2 93 16 110/61 (77) 98 08/08/17 08:00 98.0 93 23 98/57 (71) 96 08/08/17 05:45 97.2 95 16 125/66 (85) 98 08/08/17 05:07 91 18 139/78 (98) 99 08/08/17 03:44 92 18 128/67 (87) 100 Room Air 08/08/17 02:51 92 18 126/69 (88) 100 Room Air 08/08/17 01:25 Room Air 08/08/17 01:24 104 18 131/71 (91) 100 Room Air 08/08/17 00:20 98.5 117 18 115/66 (82) 100 I/O 08/07/17 08/07/17 08/07/17 08/08/17 08/08/17 08/08/17 07:00 15:00 23:00 07:00 15:00 23:00 Intake Total 1135 ml 300 ml Balance 1135 ml 300 ml Intake IV Total 1135 ml Other 300 ml # Voids 1 Result Diagram: 08/08/17 0957 08/08/17 0130 Imaging Last Impressions Chest X-Ray 08/08/17 0102 Signed Impressions: Service Date/Time: Tuesday, August 08, 2017 01:25 - CONCLUSION: No acute disease. Francisco Fan MD Lower Extremity Ultrasound 08/08/17 0000 Signed Impressions: Service Date/Time: Tuesday, August 08, 2017 08:20 - CONCLUSION: Negative for deep venous thrombosis bilateral lower extremity. Kleber Meeks MD CT Angiography 08/08/17 0000 Signed Impressions: Service Date/Time: Tuesday, August 08, 2017 04:19 - CONCLUSION: 1. Suboptimal opacification of pulmonary arteries with no evidence of pulmonary embolism. 2. Underlying pulmonary emphysema. 3. Small stable noncalcified pulmonary nodules. Francisco Fan MD Objective Remarks awake and alert no acute distress anicteric lungs- n rales regular rhythm abdomen soft, nontender extremities no edema Procedures 08/08- EGD- gastritis, duodenitis A/P Problem List: (1) Anemia ICD Code: D64.9 - Anemia, unspecified Status: Acute (2) GI bleed ICD Code: K92.2 - Gastrointestinal hemorrhage, unspecified Status: Acute (3) Atypical chest pain ICD Code: R07.89 - Other chest pain (4) Diabetes mellitus ICD Code: E11.9 - Type 2 diabetes mellitus without complications Status: Chronic (5) UTI (urinary tract infection) ICD Code: N39.0 - Urinary tract infection, site not specified Assessment and Plan Mrs. 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 GI bleed S/P EGD- gastritis, duodenitis Anemia- smptomatic Dizziness History of poorly differentiated gastric cancer - give 1 unit RBC today - consult gastroenterology - assistance appreciated - NPO except medications - Monitor orthostatic vital signs - change to po PPI - advise on reflux measures =- repeat EGD in [address] andrade Atypical Chest pain - serial EKGs and cardiac enzymes to r/o ACS - CT angiogram - negative for PE - bilateral LE doppler to r/o DVT UTI - UA c/w UTI - Ceftriaxone 1 gm IV q24h - await urine culture results and adjust treatment depending upon the results Type 2 Diabetes Mellitus - accuchecks ac and hs with med dose NovoLog sliding scale coverage - holding home medications for now- HOld metformin opost contrast - PRN hypoglycemia treatment protocol ordered - monitor trends in blood glucose and adjust treatments accordingly Hypertension - resume home HCTZ, Metoprolol, and Losartan - monitor trends in blood pressure and adjust treatment as needed DVT prophylaxis - TEDs d/w patient- wanting to go home- and leave- will sing out AMA . Problem Qualifiers (1) Anemia: Qualified Codes: D64.9 - Anemia, unspecified (2) GI bleed: Qualified Codes: K92.2 - Gastrointestinal hemorrhage, unspecified Allen Moore MD Aug 08, 2017 15:34
[2017-08-08] MEDS ORDERED: MORPHINE SULFATE 15 MG TAB PO SCH (15:45)
--- NOTE | 2017-08-08 18:44 | EKG ---
Date Performed: 08/08/2017 Time Performed: 01:23:13 PTAGE: 46 years EKG: SINUS TACHYCARDIA Since the prior tracing, there has been no significant change ABNORMAL [facility] ECG PREVIOUS TRACING : 03/09/2017 07.31 DOCTOR: Ju Abad Interpretating Date/Time 08/08/2017 18:41:55
--- NOTE | 2017-08-08 18:45 | EKG ---
Date Performed: 08/08/2017 Time Performed: 08:17:12 PTAGE: 46 years EKG: NORMAL Sinus rhythm WHEN COMPARED TO PRIOR EKG THE PATIENT IS NO LONGER TACHYCARDIC. NORMAL ECG PREVIOUS TRACING : 08/08/2017 01.23 DOCTOR: Ju Abad Interpretating Date/Time 08/08/2017 18:43:18
[2017-08-08] MEDS ORDERED: GABAPENTIN 300 MG CAP PO SCH (21:00)
[2017-08-09] MEDS ORDERED: GABAPENTIN 300 MG CAP PO SCH (09:00)
[2017-08-09] MEDS ORDERED: PANTOPRAZOLE SOD 40 MG DELAYED RELEASE TAB PO SCH (09:00)
--- NOTE | 2017-08-09 15:51 | EKG ---
Date Performed: 08/08/2017 Time Performed: 13:48:58 PTAGE: 46 years EKG: Sinus rhythm NORMAL ECG PREVIOUS TRACING : 08/08/2017 08.17 DOCTOR: Behzad Joe Interpretating Date/Time 08/09/2017 15:50:18
== END 2017-08-08 16:00 | disposition left against medical advice (07) | DRG 378 ==
LOC: NEPE 00:17 → NEDA 03:05 → N03B 05:29
PROVIDERS: ADMIT Internal Medicine; ATTEND Internal Medicine
PROC: 0DJ08ZZ Inspection of Upper Intestinal Tract, Via Natural or Artificial Opening Endoscopic (ICD-10-PCS; principal; 2017-08-08 12:30)
DX: K92.1 Melena (principal); N39.0 Urinary tract infection, site not specified; E11.42 Type 2 diabetes mellitus with diabetic polyneuropathy; K74.60 Unspecified cirrhosis of liver; I10 Essential (primary) hypertension; Z85.028 Personal history of other malignant neoplasm of stomach; Z86.711 Personal history of pulmonary embolism; Z79.01 Long term (current) use of anticoagulants; D64.9 Anemia, unspecified; F41.9 Anxiety disorder, unspecified; K44.9 Diaphragmatic hernia without obstruction or gangrene; F17.210 Nicotine dependence, cigarettes, uncomplicated; R07.89 Other chest pain; Z82.3 Family history of stroke; Z80.41 Family history of malignant neoplasm of ovary; Z80.49 Family history of malignant neoplasm of other genital organs; Z92.3 Personal history of irradiation; Z92.21 Personal history of antineoplastic chemotherapy; Z87.11 Personal history of peptic ulcer disease; Z90.3 Acquired absence of stomach [part of]; K29.80 Duodenitis without bleeding; K29.70 Gastritis, unspecified, without bleeding
CPT/HCPCS: 71045; 71275; 80053; 81001; 82550; 82948; 83690; 83735; 83880; 84443; 84484; 84703; 85014; 85018; 85025; 85610; 85730; 86850; 86900; 86901; 87077; 87086; 87186; 93005; 93970; 96365; 96367; 96375; C9113; J0696; J2270; J2405; J7030; Q9967